=== PATIENT | male | born 1945 | race Caucasian/White ===

== ENCOUNTER 2016-06-23 11:27 | Inpatient (IN) | payer OTHER ==
[~2016-06-23] VITALS: Ht 177.8 cm; Wt 80.4 kg
[~2016-06-23 11:27] MED LIST: CMD25 PO; DOCU-94 PO; GLCSC500400 PO; OXYC-57 PO; SENN1TAB77 PO; WARF2.5T8 PO
--- NOTE | 2016-06-23 11:56 | EMERGENCY ROOM VISIT NOTE ---
History Report prepared by Audra: Janneth Ashford Under the Supervision of: Dr. Elkin Hicks M.D. First contact with patient: 11:43 Chief Complaint: CALF PAIN Stated Complaint: PAIN/REDNESS AND SWELLING TO LEFT CALF History of Present Illness The patient is a 71 year old male who presents to the Emergency Room with complaints of persistent left calf pain that began 14 days ago. He currently rates his discomfort as an 8/10 in severity. The patient states that on 06/10 he started with left leg pain and left knee pain. He states that on 06/12 he developed severe pain and could not get out of bed. The patient states that he was evaluated in the emergency department for his pain and had his knee drained by Dr. Kapoor. He states that his knee discomfort and swelling has gone down, but notes that he is having increased calf discomfort and swelling. The patient states that he noticed erythema to the area develop yesterday. He denies any trauma to his area. The patient notes that he is on Coumadin for atrial fibrillation. Source of History: patient Onset: 14 days ago Position: other (left calf) Symptom Intensity: 8/10 Quality: other (swelling) Timing: other (persistent) Note: Associated Symptoms: erythema to left calf, left knee swelling Review of Systems No change from visit on June 12. Past Medical & Surgical Medical Problems: (1) Diabetes (2) Heart disease (3) Hypertension (4) Pacemaker (5) Pneumonia Surgical Problems: (1) S/P aortic valve replacement (2) Status post right knee replacement Family History Diabetes mellitus FHx: heart disease Hypertension Social History Smoking Status: Current Some Day Smoker Alcohol Use: occasionally Marital Status: Occupation Status: retired Current/Historical Medications Scheduled Aspirin (Aspirin EC Low Dose), 81 MG PO DAILY Atenolol (Tenormin), 50 MG PO DAILY Atorvastatin (Lipitor), 80 MG PO DAILY Bioflavonoid Products (Dionna-C), 1,000 MG PO DAILY Glimepiride (Glimepiride), 1 TAB PO DAILY Glucosamine-Chondroitin (Glucosamine/Chondroitin), 1 TAB PO DAILY Lisinopril (Zestril), 5 MG PO DAILY Metformin Hcl (Glucophage), 1,000 MG PO BID Multivitamin (Multivitamin), 1 TAB DAILY Warfarin Sod (Jantoven), 2.5 MG PO 4XWK Warfarin Sod (Coumadin), 1.25 MG PO 2XWK Scheduled PRN Epinephrine (Epipen), 0.3 MG IM UD PRN for Chest Pain Oxycodone/Acetaminophen 5MG/325MG (Percocet 5MG/325MG), 1-2 TAB PO Q4H PRN for Pain Allergies Coded Allergies: Adhesives (Verified Allergy, Unknown, blisters with surgical glue , 06/23/16 ) Cephalexin (Verified Allergy, Unknown, hives, 06/23/16) Honey Bee (Verified Allergy, Unknown, 06/23/16) Physical Exam Vital Signs Date Time Temp Pulse Resp B/P Pulse Ox O2 Delivery O2 Flow Rate FiO2 06/23/16 14:10 60 18 120/66 95 Room Air 06/23/16 11:29 36.3 80 18 125/68 96 Room Air Physical Exam GENERAL: Patient awake, alert, oriented x 3. Patient follows commands. Patient does not appear toxic. Patient is adequately hydrated and well- nourished. SKIN: No erythema, pallor, cyanosis or rash HEENT: Normal head, pupils equal, reactive to light and accommodation. Neck: Without adenopathy, no neck vein distention. LUNGS: Clear to auscultation. No wheezes, no rales, no rhonchi. HEART: No murmurs. No gallops. No rubs ABDOMEN: No masses, no rebound, no hepatomegaly or splenomegaly. EXTREMITIES: Ecchymosis on the medial aspect of the left knee. Babak swelling and erythema of the left calf. Circulation is intact. Pain with any movement of the left leg. Sensory function intact. NEUROLOGIC: Cranial nerves II-XII within normal limits. No gross motor sensory function deficits. Medical Decision & Procedures ER Provider Diagnostic Interpretation: US results are interpretations by the radiologist and per my review. LEFT LOWER EXTREMITY VENOUS DOPPLER HISTORY: Left calf pain and swelling. COMPARISON STUDY: None. FINDINGS: There is normal compressibility, flow, and augmentation within the left lower extremity deep venous system. At the popliteal fossa extending into the calf there is a 17 x 9 x 4 cm complex fluid collection. This is located deep to the subcutaneous fat and partially compresses the adjacent calf muscles. IMPRESSION: No DVT within the left lower extremity. At the left popliteal fossa extending into the calf there is a 17 x 9 x 4 cm complex fluid collection. This is located deep to the subcutaneous fat. This could represent a hematoma related to prior trauma or possibly an abscess in the appropriate clinical setting. Recommend follow-up to resolution. Electronically signed by: Corbin Awad M.D. 06/23/2016 1:29 PM Dictated Date/Time: 06/23/2016 1:27 PM Laboratory Results 06/23/16 12:05 Red Blood Count 4.37, Mean Corpuscular Volume 92.2, Mean Corpuscular Hemoglobin 32.3, Mean Corpuscular Hemoglobin Concent 35.0, Mean Platelet Volume 9.4, Neutrophils (%) (Auto) 72.6, Lymphocytes (%) (Auto) 15.9, Monocytes (%) (Auto) 10.2, Eosinophils (%) (Auto) 0.6, Basophils (%) (Auto) 0.2, Neutrophils # (Auto ) 9.36, Lymphocytes # (Auto) 2.05, Monocytes # (Auto) 1.32, Eosinophils # (Auto ) 0.08, Basophils # (Auto) 0.02 06/23/16 12:05 Test 06/23/16 12:05 06/23/16 14:02 White Blood Count 12.90 K/uL (4.8-10.8) Red Blood Count 4.37 M/uL (4.7-6.1) Hemoglobin 14.1 g/dL (14.0-18.0) Hematocrit 40.3 % (42-52) Mean Corpuscular Volume 92.2 fL (80-100) Mean Corpuscular Hemoglobin 32.3 pg (25-34) Mean Corpuscular Hemoglobin Concent 35.0 g/dl (32-36) Platelet Count 347 K/uL (130-400) Mean Platelet Volume 9.4 fL (7.4-10.4) Neutrophils (%) (Auto) 72.6 % Lymphocytes (%) (Auto) 15.9 % Monocytes (%) (Auto) 10.2 % Eosinophils (%) (Auto) 0.6 % Basophils (%) (Auto) 0.2 % Neutrophils # (Auto) 9.36 K/uL (1.4-6.5) Lymphocytes # (Auto) 2.05 K/uL (1.2-3.4) Monocytes # (Auto) 1.32 K/uL (0.11-0.59) Eosinophils # (Auto) 0.08 K/uL (0-0.5) Basophils # (Auto) 0.02 K/uL (0-0.2) RDW Standard Deviation 50.6 fL (36.4-46.3) RDW Coefficient of Variation 15.0 % (11.5-14.5) Immature Granulocyte % (Auto) 0.5 % Immature Granulocyte # (Auto) 0.07 K/uL (0.00-0.02) Prothrombin Time 14.9 SECONDS (9.0-12.0) Prothromb Time International Ratio 1.4 (0.9-1.1) Activated Partial Thromboplast Time 35.0 SECONDS (21.0-31.0) Partial Thromboplastin Ratio 1.3 Anion Gap 11.0 mmol/L (3-11) Est Creatinine Clear Calc Drug Dose 80.9 ml/min Estimated GFR () 101.1 Estimated GFR (Non- 87.2 BUN/Creatinine Ratio 20.4 (10-20) Calcium Level 9.0 mg/dl (8.5-10.1) Bedside Lactic Acid Venous 0.93 mmol/L (0.90-1.70) Laboratory results as stated above per my review. Medications Administered Medications (Trade) Dose Ordered Sig/Harpal Route Start Time Stop Time Status Last Admin Dose Admin Oxycodone/ Acetaminophen (Percocet 5-325MG Tab) 1 tab NOW ONCE PO 06/23/16 12:00 06/23/16 12:01 DC 06/23/16 11:56 1 TAB Oxycodone/ Acetaminophen (Percocet 5-325MG Tab) 1 tab NOW ONCE PO 06/23/16 14:15 06/23/16 14:16 DC 06/23/16 14:13 1 TAB ECG Indication: other (history of atrial fibrillation) Rate (beats per minute): 60 Rhythm: other (duel pacemaker) Findings: no acute ischemic change, no ectopy Comparison ECG Date: 06/12/16 ED Course 1143: Past medical records reviewed. The patient was evaluated in room B7. A complete history and physical examination was performed. 1200: Ordered Oxycodone/Acetaminophen 1 tab PO. 1409: I reevaluated the patient and he is resting. I discussed his exam findings with him and I discussed the treatment plan. He verbalized complete understanding and agreement. The patient will be evaluated for further treatment. 1415: Ordered Oxycodone/Acetaminophen 1 tab PO. 1423: I discussed the patients case with PAVAN Stokes. She is going to evaluate the patient for further treatment. Medical Decision Nurses notes reviewed. Medical history sheet reviewed. Differential diagnosis includes but is not limited to: DVT, cellulitis, atrial fibrillation. The patient is here with left knee and calf pain. He states that his knee is now better since having it drained by the orthopedist. The calf has gotten much worse and now is red, swollen and very tender. The patient is concerned that he has a DVT. Ultrasound was obtained revealing a large collection of fluid but no DVT. The patient's white count is elevated. The patient and the patient's lactic acid is not elevated. The patient has significant cellulitis and possibly an abscess. Blood cultures were obtained. The patient will be started on antibiotics. The patient will require orthopedic evaluation. I discussed care with the hospitalist. Consults Time Called: 1416 Consulting Physician: PAVAN Stokes Returned Call: 1428 I discussed the patients case with PAVAN Stokes. She is going to evaluate the patient for further treatment. Impression Primary Impression: Cellulitis Scribe Attestation The scribe's documentation has been prepared under my direction and personally reviewed by me in its entirety. I confirm that the note above accurately reflects all work, treatment, procedures, and medical decision making performed by me. Departure Information Dispostion Being Evaluated By Hospitalist Referrals Francoise Kang M.D. (PCP)
[2016-06-23] MEDS ORDERED: OXYCODONE/ACETAMINOPHEN 5-325 TAB PO ONE ×2 (12:00→14:15)
[2016-06-23 12:17] LABS: BASO % 0.2 %; BASO ABS # 0.02 K/uL (0-0.2); COMPLETE YES; EOS % 0.6 %; HEMATOCRIT 40.3 % (42-52); IG% 0.5 %; LYMPH % 15.9 %; LYMPH ABS # 2.05 K/uL (1.2-3.4); MEAN CELL VOLUME 92.2 fL (80-100); MEAN CORPUSCULAR HEMOGLOBIN 32.3 pg (25-34); MEAN PLATELET VOLUME 9.4 fL (7.4-10.4); MONO % 10.2 %; NEUT % 72.6 %; PLATELET COUNT 347 K/uL (130-400); RED BLOOD COUNT 4.37 M/uL (4.7-6.1)
[2016-06-23 12:33] LABS: INR 1.4 (0.9-1.1); PARTIAL THROMBOPLASTIN RATIO 1.3; PROTHROMBIN TIME (PATIENT) 14.9 SECONDS (9.0-12.0)
[2016-06-23 12:45] LABS: BUN/CREATININE RATIO 20.4 (10-20); CREATININE 0.89 mg/dl (0.60-1.40); POTASSIUM 4.2 mmol/L (3.5-5.1)
--- NOTE | 2016-06-23 13:31 | DIAGNOSTIC IMAGING REPORT ---
LEFT LOWER EXTREMITY VENOUS DOPPLER HISTORY: Left calf pain and swelling. COMPARISON STUDY: None. FINDINGS: There is normal compressibility, flow, and augmentation within the left lower extremity deep venous system. At the popliteal fossa extending into the calf there is a 17 x 9 x 4 cm complex fluid collection. This is located deep to the subcutaneous fat and partially compresses the adjacent calf muscles. IMPRESSION: No DVT within the left lower extremity. At the left popliteal fossa extending into the calf there is a 17 x 9 x 4 cm complex fluid collection. This is located deep to the subcutaneous fat. This could represent a hematoma related to prior trauma or possibly an abscess in the appropriate clinical setting. Recommend follow-up to resolution. Electronically signed by: Corbin Awad M.D. 06/23/2016 1:29 PM Dictated Date/Time: 06/23/2016 1:27 PM
[2016-06-23] MEDS ORDERED: ONDANSETRON INJ 2 MG/ML 2 ML VIAL IV PRN (16:00)
[2016-06-23] MEDS ORDERED: ACETAMINOPHEN 325 MG TAB PO PRN (16:00)
[2016-06-23] MEDS ORDERED: VANCOMYCIN CONSULT ACTIVE PRN (16:05)
[2016-06-23] MEDS ORDERED: GLUCOSE 40% GEL 15 GM TUBE PO PRN (16:15)
[2016-06-23] MEDS ORDERED: DEXTROSE 50% 50 ML SYR IV PRN (16:15)
[2016-06-23] MEDS ORDERED: GLUCAGON FOR INJ 1 MG VIAL SQ PRN (16:15)
[2016-06-23] MEDS ORDERED: GLUCOSE 10 TABS/TUBE PO PRN (16:15)
[2016-06-23] MEDS ORDERED: VANCOMYCIN INJ 2,000 MG in SODIUM CHLORIDE 0.9% 500ML 500 ML IV ONE (16:30)
--- NOTE | 2016-06-23 16:41 | History and Physical ---
History & Physical Date & Time of Service: Jun 23, 2016 at 16:16 Chief Complaint: Pain/Redness And Swelling To Left Calf Primary Care Physician: Francoise Kang M.D. History of Present Illness Source: patient This is a 71 y/o male with PMHx of DM 2, Complete heart block s/p pacer, s/p AVR on Coumadin, PAF, HTN, Dyslipidemia and ither problems as outlined below who presents to the ED c/o L calf pain x 2 weeks . Pt reports that 2 weeks ago he developed L knee pain that radiated into the calf and ankle. He was seen in the ED for for his sxs and LLE US revealed a small fluid collection behind his knee. He was seen by ortho, Dr. Kapoor, who attempted to drain the knee and gave a steroid injection. Pt reports that the steroid injection helped with the knee pain however the calf pain has gotten progressively worse. He describes the calf pain as 10/10 stabbing pain. His sxs are aggravated with standing or bearing weight therefore he has been using a walker for the past week. His calf is significantly swollen and starting yesterday he noticed erythema extending from the knee to the ankle with assoc warmth to touch. Pt has a history of PAf on Coumadin. He has no history of DVT. Pt denies fever/chills, diaphoresis, chest pain, palpitations, SOB, wheezing, abd pain, N/V, bowel or bladder issues , lightheadedness/dizziness. In the ED, vitals are stable. Pt is afebrile with leukocytosis >12k. INR 1.4. LLE US + large fluid collection. Pt will be admitted for further evaluation and treatment. Past Medical/Surgical History Medical Problems: (1) Diabetes mellitus, type II Status: Chronic (2) Dyslipidemia Status: Chronic (3) Heart disease Status: Chronic (4) Hypertension Status: Chronic (5) Pacemaker Permanent Comment: for complete heart block Status: Chronic (6) Paroxysmal atrial fibrillation Status: Resolved (7) Pneumonia Status: Resolved Surgical Problems: (1) H/O vasectomy Status: Resolved (2) History of carpal tunnel surgery Status: Resolved (3) S/P aortic valve replacement Status: Resolved (4) S/P AVR Status: Resolved (5) Status post right knee replacement Status: Resolved Family History Diabetes mellitus FHx: heart disease Hypertension Social History Smoking Status: Current Every Day Smoker (1 ppd x 20 years; 5 cigs per day x 10 years) Alcohol Use: occasionally Drug Use: none Marital Status: Housing status: lives alone Occupational Status: retired Immunizations History of Influenza Vaccine: Yes History of Tetanus Vaccine?: Yes History of Pneumococcal: No History of Hepatitis B Vaccine: No Multi-Drug Resistant Organisms History of MDRO: No Allergies Coded Allergies: Adhesives (Verified Allergy, Unknown, blisters with surgical glue , 06/23/16 ) Cephalexin (Verified Allergy, Unknown, hives, 06/23/16) Honey Bee (Verified Allergy, Unknown, 06/23/16) Home Medications Scheduled Aspirin (Aspirin EC Low Dose), 81 MG PO DAILY Atenolol (Tenormin), 50 MG PO DAILY Atorvastatin (Lipitor), 80 MG PO DAILY Bioflavonoid Products (Dionna-C), 1,000 MG PO DAILY Glimepiride (Glimepiride), 1 TAB PO DAILY Glucosamine-Chondroitin (Glucosamine/Chondroitin), 1 TAB PO DAILY Lisinopril (Zestril), 5 MG PO DAILY Metformin Hcl (Glucophage), 1,000 MG PO BID Multivitamin (Multivitamin), 1 TAB DAILY Warfarin Sodium (Coumadin), 2.5 MG PO 3XWK Warfarin Sodium (Coumadin), 1.25 MG PO 4XWK Scheduled PRN Epinephrine (Epipen), 0.3 MG IM UD PRN for Chest Pain Oxycodone/Acetaminophen 5MG/325MG (Percocet 5MG/325MG), 1-2 TAB PO Q4H PRN for Pain Review of Systems Constitutional: No chills, No fatigue, No fever, No sweats, No weakness Eyes: No worsening of vision ENT: No hearing loss Respiratory: No cough, No shortness of breath Cardiovascular: No chest pain, No palpitations Abdomen: No constipation, No diarrhea, No nausea, No pain, No vomiting Musculoskeletal: + calf pain, + swelling Genitourinary - Male: No dysuria Neurologic: No weakness Psychiatric: No depression symptoms Endocrine: No fatigue Hematologic / Lymphatic: + abnormal bleeding/bruising (eccymosis LLE) Integumentary: + new/changing skin lesions (see HPI) Physical Exam Vital Signs Date Time Temp Pulse Resp B/P Pulse Ox O2 Delivery O2 Flow Rate FiO2 1/8/17 14:10 60 18 120/66 95 Room Air 06/23/16 11:29 36.3 80 18 125/68 96 Room Air General Appearance: WD/WN, no apparent distress, + pertinent finding (Pt si laying in bed with significant other at bedside ) Head: normocephalic, atraumatic Eyes: normal inspection ENT: hearing grossly normal Neck: supple Respiratory/Chest: chest non-tender, lungs clear, normal breath sounds, no respiratory distress Cardiovascular: regular rate, rhythm, no murmur Abdomen/GI: normal bowel sounds, non tender, soft Back: normal inspection Extremities/Musculoskelatal: + pertinent finding (LLE with erythema and edema extending from knee to ankle with eccymosis noted to medial aspect of knee and calf; diffusely tender to touch; no wounds or skin openings noted) Neurologic/Psych: alert, normal mood/affect, oriented x 3 Skin: + pertinent finding (see above) Diagnostics Laboratory Results Results Past 24 Hours Test 06/23/16 12:05 06/23/16 14:02 Range/Units White Blood Count 12.90 4.8-10.8 K/uL Red Blood Count 4.37 4.7-6.1 M/uL Hemoglobin 14.1 14.0-18.0 g/dL Hematocrit 40.3 42-52 % Mean Corpuscular Volume 92.2 80-100 fL Mean Corpuscular Hemoglobin 32.3 25-34 pg Mean Corpuscular Hemoglobin Concent 35.0 32-36 g/dl Platelet Count 347 130-400 K/uL Mean Platelet Volume 9.4 7.4-10.4 fL Neutrophils (%) (Auto) 72.6 % Lymphocytes (%) (Auto) 15.9 % Monocytes (%) (Auto) 10.2 % Eosinophils (%) (Auto) 0.6 % Basophils (%) (Auto) 0.2 % Neutrophils # (Auto) 9.36 1.4-6.5 K/uL Lymphocytes # (Auto) 2.05 1.2-3.4 K/uL Monocytes # (Auto) 1.32 0.11-0.59 K/uL Eosinophils # (Auto) 0.08 0-0.5 K/uL Basophils # (Auto) 0.02 0-0.2 K/uL RDW Standard Deviation 50.6 36.4-46.3 fL RDW Coefficient of Variation 15.0 11.5-14.5 % Immature Granulocyte % (Auto) 0.5 % Immature Granulocyte # (Auto) 0.07 0.00-0.02 K/uL Prothrombin Time 14.9 9.0-12.0 SECONDS Prothromb Time International Ratio 1.4 0.9-1.1 Activated Partial Thromboplast Time 35.0 21.0-31.0 SECONDS Partial Thromboplastin Ratio 1.3 Sodium Level 140 136-145 mmol/L Potassium Level 4.2 3.5-5.1 mmol/L Chloride Level 104 98-107 mmol/L Carbon Dioxide Level 25 21-32 mmol/L Anion Gap 11.0 3-11 mmol/L Blood Urea Nitrogen 18 7-18 mg/dl Creatinine 0.89 0.60-1.40 mg/dl Est Creatinine Clear Calc Drug Dose 80.9 ml/min Estimated GFR () 101.1 Estimated GFR (Non- 87.2 BUN/Creatinine Ratio 20.4 10-20 Random Glucose 154 70-99 mg/dl Calcium Level 9.0 8.5-10.1 mg/dl Bedside Lactic Acid Venous 0.93 0.90-1.70 mmol/L Microbiology Results 06/23/16 Blood Culture, Received Pending 06/23/16 Blood Culture, Received Pending Diagnostic Radiology LLE US IMPRESSION: No DVT within the left lower extremity. At the left popliteal fossa extending into the calf there is a 17 x 9 x 4 cm complex fluid collection. This is located deep to the subcutaneous fat. This could represent a hematoma related to prior trauma or possibly an abscess in the appropriate clinical setting. Recommend follow-up to resolution EKG EKG: dual-paced rhythm at 60 bpm with no acute ischemic changes; no change when compared to EKG from 06/12/16 Impression Assessment and Plan LLE PAIN/SWELLING; POSSIBLE ABSCESS VS. HEMATOMA pt presents with worsening LLE pain, swelling and erythema -admit to med/surg -LLE US Impression: No DVT within the left lower extremity. At the left popliteal fossa extending into the calf there is a 17 x 9 x 4 cm complex fluid collection. This is located deep to the subcutaneous fat. This could represent a hematoma related to prior trauma or possibly an abscess in the appropriate clinical setting. Recommend follow-up to resolution -hold Coumadin for possible hematoma/possible OR -consult ortho surgery, Dr. Vega -monitor LLE CELLULITIS -afebrile with leukocytosis >12k -start IV Vanco -monitor SUBTHERAPEUTIC INR -on Coumadin for Afib and AVR -INR 1.4 -hold Coumadin for now due to possible hematoma -monitor INR daily DM 2 -A1C 7.1; repeat in AM -hold metformin and glimepiride -start ISS -monitor BSG AC HS COMPLETE HEART BLOCK s/p pacemaker placed 2003 and replaced 2013 H/O AVR -hold Coumadin (see above) PAF -EKG: paced rhythm -hold Coumadin for now (see above) -cont BB -monitor HTN -BP stable -cont lisinopril and atenolol -monitor DYSLIPIDEMIA -cont statin DVT PROPHYLAXIS -subq heparin CODE STATUS -FULL CODE status DISPO -Pt seen in collaboration with Dr. Lam. Please see his addendum for further details. Thanks! Attending Note: Patient is a 71 yr old male with PMH of DM II, Complete heart block s/p pacer, s /p AVR on Coumadin, PAF, HTN, HLP, presents with Left LE pain predominantly calf associated with swelling, redness since 2 weeks duration Venous duplex is negative for DVT but showed fluid collection. Physical Exam: Vital signs as noted above Moderately built and nourished, no distress NC/AT, EOMI, PERRLA CVS: S1, S2, no murmur Lungs; CTA, no accessory muscle use Abd: soft, non tender, BS present Neuro; no focal deficits Ext: Ecchymosis on the medial aspect of the left knee, swelling, erythema, tender left calf. Assessment and plan: Left LE cellulitis with Abscess/hematoma Start on IV Vancomycin Blood cultures Venous Duplex No DVT Ortho consult, May need drainage Pain control, PT/OT Agree with assessment and plan as above. VTE Prophylaxis VTE Risk Assessment Done? Y/N: Yes Risk Level: High
[2016-06-23 17:00] VITALS: BP 122/77; PULSE 62; TEMP 36.5; O2SAT 96; Ht 177.8 cm; Wt 80.4 kg
[2016-06-23] MEDS ORDERED: INSULIN ASPART 100 UNITS/ML 3 ML PEN SC SCH (21:00)
[2016-06-23] MEDS ORDERED: HEPARIN SOD 5000 UNIT/0.5 ML CARP SQ SCH (22:00)
--- NOTE | 2016-06-23 22:04 | Pharmacy Progress Note ---
Pharmacy Antibiotic Consult Date of Service: Jun 23, 2016. Pharmacy Dosing Scope Pharmacy is consulted to initiate IV Vancomycin dosing therapy, order appropriate labs and adjust drug dose/frequency. Subjective The patient is a 71 year old male admitted on Jun 23, 2016 at 15:40. Objective Height (Feet): 5 Height (Inches): 10.00 Weight (Kilograms): 80.400 Lab Results (24hrs): Laboratory Tests Test 06/23/16 12:05 BUN/Creatinine Ratio 20.4 Blood Urea Nitrogen 18 mg/dl Creatinine 0.89 mg/dl White Blood Count 12.90 K/uL Red Blood Count 4.37 M/uL Hemoglobin 14.1 g/dL Hematocrit 40.3 % Mean Corpuscular Volume 92.2 fL Mean Corpuscular Hemoglobin 32.3 pg Mean Corpuscular Hemoglobin Concent 35.0 g/dl Platelet Count 347 K/uL Mean Platelet Volume 9.4 fL Neutrophils (%) (Auto) 72.6 % Lymphocytes (%) (Auto) 15.9 % Monocytes (%) (Auto) 10.2 % Eosinophils (%) (Auto) 0.6 % Basophils (%) (Auto) 0.2 % Neutrophils # (Auto) 9.36 K/uL Lymphocytes # (Auto) 2.05 K/uL Monocytes # (Auto) 1.32 K/uL Eosinophils # (Auto) 0.08 K/uL Basophils # (Auto) 0.02 K/uL Micro Results: Item Value Date Time Blood Culture Received 06/23/16 1354 Blood Pending Blood Culture Received 06/23/16 1402 Blood Pending Recent Pertinent Medications Item Value Date Time Vancomycin HCl 540 ml @ 200 mls/hr 06/23/16 1630 2000 mg/Sodium NOW ONCE/IV 06/23/16 1623 Chloride Vancomycin HCl 274 ml @ 125 mls/hr 06/24/16 0400 1200 mg/Sodium Q12H/IV Chloride Assessment & Plan Vancomycin * 71 yo male admitted w/ LLE cellulitis * Loading dose: Vancomycin 2gm IV x 1 dose * Maintenance dose: Vancomycin 1200mg IV q12h * P'kinetic estimates: k ~ 0.0716hr-1 & t1/2 ~ 9.7hr * Goal trough level: ~15mcg/mL * Trough level ordered for: 06/25/15 0400 Pharmacy will continue to follow and will adjust dose/frequency as necessary. Thank you
[2016-06-23] MEDS ORDERED: NURSING VERBAL MED ORDER ONE (22:30)
[2016-06-23 23:25] VITALS: BP 119/72; PULSE 62; TEMP 36.9; O2SAT 97
[2016-06-24] MEDS: VANCOMYCIN INJ 1,200 MG in SODIUM CHLORIDE 0.9% 250ML 250 ML IV SCH ×2 (03:59→15:31)
[2016-06-24 05:38] LABS: INR 1.4 (0.9-1.1); PROTHROMBIN TIME (PATIENT) 15.4 SECONDS (9.0-12.0)
[2016-06-24 05:56] LABS: CREATININE 0.66 mg/dl (0.60-1.40)
[2016-06-24 06:30] LABS: ESTIMATED AVERAGE GLUCOSE 143 mg/dl; HA1C FLAG Normal (Normal)
[2016-06-24] MEDS ORDERED: NURSING VERBAL MED ORDER ONE ×2 (07:00→13:15)
[2016-06-24] MEDS: INSULIN ASPART 100 UNITS/ML 3 ML PEN SC SCH ×4 (07:15→21:00)
[2016-06-24] MEDS: LISINOPRIL 5 MG TAB PO SCH (07:17)
[2016-06-24] MEDS: ATORVASTATIN 40 MG TAB PO SCH (07:17)
[2016-06-24] MEDS: MULTIVITAMIN TAB PO SCH (07:17)
[2016-06-24 07:20] VITALS: BP 132/70; PULSE 60
[2016-06-24 07:30] VITALS: BP 134/76; PULSE 72; TEMP 37.1; O2SAT 95
[2016-06-24 07:39] VITALS: O2SAT 95
[2016-06-24] MEDS ORDERED: BIOFLAVONOID PRODUCTS PO SCH (09:00)
[2016-06-24] MEDS ORDERED: GLUCOSAMINE CHONDROITIN PO SCH (09:00)
[2016-06-24 15:17] VITALS: BP 117/76; PULSE 66; TEMP 36.5; O2SAT 97
--- NOTE | 2016-06-24 15:25 | HISTORY & PHYSICAL EXAMINATION ---
DATE OF ADMISSION: 06/23/2016 CHIEF COMPLAINT: Left calf pain. HISTORY OF PRESENT ILLNESS: Mr. Dejesus is a delightful gentleman. He is 71 years of age. He has had ongoing difficulties with his left knee, left lower extremity for 15 days in duration. Pain started around , may be a day before. He came to the Emergency Room on the 12 of June seen and evaluated. He also had a knee injection performed by Dr. Nba Kapoor and helped him immensely as far as his knee is concern. Then over the course of weeks and days he has had progressive lower extremity difficulty mainly in the calf, exquisite knife and stabbing type pain when he bears weight on the lower extremity. It can be as high as a 10/10. He is comfortable at rest. His pain is aggravated by standing and walking. PAST MEDICAL AND SURGICAL HISTORY: Diabetes, hyperlipidemia, heart disease, hypertension, pacemaker insertion, AFib, pneumonia, vasectomy. He also recently had been placed on Coumadin. SOCIAL HISTORY: He is a smoker, mild alcohol, no drug use. He lives alone, retired. MEDICATIONS: Listed including aspirin, Tenormin, Lipitor, glimepiride, Zestril, Glucophage, multi vitamin, and Coumadin. REVIEW OF SYSTEMS: He has no constitutional issues of fevers, sweats, chills. No bowel or bladder issues. As far as that is concerned, he is comfortable. Denies any chest pain and palpitations. Denies asthma, wheezing. Denies nausea, vomiting. Denies urgency, frequency. He really has a singular issue with left lower extremity and calf tenderness. OBJECTIVE: Vital signs stable. As far as his left lower extremity is concerned, there is some discoloration, pain in the left calf region. It does appear that it has gone inferior, drifted with the gravity down the part of his calf region. It is not exquisitely tender. There is not a Homans sign. There is no neurological deficit. There is no breakage of skin. He has weakness of push off strength. Slight weakness of dorsiflexion. He has great range of motion of the knee and ankle. There is discoloration looks like it is in the process of healing. LABORATORY DATA: White count slightly elevated. Hematocrit 40.3. Prothrombin time of 14.9. IMAGING DATA: X-rays demonstrate some degenerative changes about the left knee and what appears to be chondrocalcinosis. CLINICAL SUMMARY: Includes that of a delightful young gentleman, 71 years of age, more than likely he had either a Cardoza's cyst posterior aspect of the knee that ruptured now is dissecting down the posterior calf musculature. He also might have had a tear of the gastrocsoleus complex, a popliteus tendon, although he has had no trauma. From also is made worse the fact that he has been on Coumadin, so he is probably a little more bleeding into the calf region than per normal. DISPOSITION: Surgery is contraindicated. I would keep him this, walk with supported ice, rest, elevation, medication and this should eventually resolve over time. Again, surgery contraindicated. As far as starting the Coumadin that is debatable. I think we should start his Coumadin treatments maybe in 2-4 days from now might be appropriate as well. I will follow again in the morning which would be the 25 of June. DENTON
[2016-06-24] MEDS: OXYCODONE/ACETAMINOPHEN 5-325 TAB PO PRN ×2 (15:30→19:52)
--- NOTE | 2016-06-24 18:44 | Progress Note ---
Internal Med Progress Note Date of Service: Jun 24, 2016. Provider Documentation: SUBJECTIVE: Patient is seen and examined at bedside. States having persistent left calf pain. Denies any new symptoms. Erythema of left LE improved from yesterday. OBJECTIVE: Vital Signs-as noted below General Appearance: WD/WN, no apparent distress Head: normocephalic, atraumatic Eyes: normal inspection ENT: hearing grossly normal Neck: supple, No JVD Respiratory/Chest: chest non-tender, lungs clear, normal breath sounds, no respiratory distress Cardiovascular: regular rate, rhythm, no murmur Abdomen/GI: normal bowel sounds, non tender, soft Back: normal inspection Extremities/Musculoskelatal: LLE erymatous, left calf swelling, tender Neurologic/Psych: alert, normal mood/affect, oriented x 3, No focal deficits Skin: + pertinent finding (see above) Lab data as noted below. ASSESSMENT & PLAN: Patient is a 71 yr old male with PMH of DM II, Complete heart block s/p pacer, s /p AVR on Coumadin, PAF, HTN, HLP, presents with Left LE pain predominantly calf associated with swelling, redness since 2 weeks duration. Venous duplex is negative for DVT but showed fluid collection Left LE cellulitis with Abscess/hematoma Likely Backer's cyst rupture/tendon rupture Continue IV Vancomycin Blood cultures-pending Venous Duplex No DVT Appreciate Orthopedic input Hold Coumadin for now Follow up CT LLE Pain control, PT/OT P.Afib Subtherapeutic INR: INR: 1.4 today Coumadin on hold given possibility of hematoma in LLE DM II HbA1C: 6.6 Hold home meds ISS, Accu checks Complete heart block S/P Pacemaker placed 2003 and replaced 2013 Hypertension: Stable continue lisinopril, BB Dyslipidemia: continue statin DVT Px: SCDs Code Status Full code Vital Signs: Date Time Temp Pulse Resp B/P Pulse Ox O2 Delivery O2 Flow Rate FiO2 06/24/16 15:17 36.5 66 18 117/76 97 Room Air 06/24/16 07:41 Room Air 06/24/16 07:39 95 Room Air 06/24/16 07:30 37.1 72 18 134/76 95 Room Air 06/24/16 07:20 60 132/70 06/24/16 00:15 Room Air 06/23/16 23:25 36.9 62 16 119/72 97 Room Air 06/23/16 19:45 Room Air Lab Results: Results Past 24 Hours Test 06/23/16 20:42 06/24/16 05:07 06/24/16 12:23 Range/Units Bedside Glucose 112 103 70-99 mg/dl Prothrombin Time 15.4 9.0-12.0 SECONDS Prothromb Time International Ratio 1.4 0.9-1.1 Creatinine 0.66 0.60-1.40 mg/dl Est Creatinine Clear Calc Drug Dose 109.1 ml/min Estimated GFR () 114.3 Estimated GFR (Non- 98.6 Estimated Average Glucose 143 mg/dl Hemoglobin A1c 6.6 4.5-5.6 %
--- NOTE | 2016-06-24 19:02 | DIAGNOSTIC IMAGING REPORT ---
LEFT LOWER LEG CT CT DOSE: 285.16 mGy.cm HISTORY: HEMATOMA VS ABSCESS LEFT KNEE/CALF. COORDINATE WITH ULTRA SOUND TECHNIQUE: Multiaxial CT images of the left lower leg were performed and reformatted in the sagittal and coronal plane without the use of contrast. COMPARISON: Left leg venous Doppler 06/23/2016. FINDINGS: Within the medial gastrocnemius muscle there is a 16 x 6 x 5 cm predominantly hyperdense area. This results in expansion of the muscle. This most likely represents an intramuscular hematoma. There is subcutaneous edema seen within the distal lower leg. There is no gas to suggest an abscess. No fracture or dislocation within the tibia or fibula. Mild to moderate osteoarthritis within the knee. There is no knee effusion. IMPRESSION: A 16 x 6 x 5 cm predominantly hyperdense area within the medial gastrocnemius muscle. This is consistent with an intramuscular hematoma. An underlying infectious process is considered less likely but cannot be excluded by CT. This requires clinical evaluation. One month ultrasound follow-up can be performed to ensure complete resolution. Electronically signed by: Corbin Awad M.D. 06/24/2016 7:00 PM Dictated Date/Time: 06/24/2016 6:55 PM
[2016-06-24 23:19] VITALS: BP 112/65; PULSE 60; TEMP 36.4; O2SAT 97
[2016-06-25] VITALS (8 sets, daily range): BP systolic 112–134; BP diastolic 65–84; PULSE 58–74; TEMP 36.3–36.7; O2SAT 94–97
[2016-06-25] MEDS ORDERED: VANCOMYCIN TROUGH SCH (03:30)
[2016-06-25] MEDS ORDERED: NURSING VERBAL MED ORDER ONE ×2 (03:45→19:00)
[2016-06-25] MEDS: VANCOMYCIN INJ 1,200 MG in SODIUM CHLORIDE 0.9% 250ML 250 ML IV SCH ×2 (04:03→15:34)
[2016-06-25] MEDS: INSULIN ASPART 100 UNITS/ML 3 ML PEN SC SCH ×4 (06:00→21:00)
[2016-06-25 06:22] LABS: BASO % 0.2 %; BASO ABS # 0.02 K/uL (0-0.2); COMPLETE YES; EOS % 2.8 %; HEMATOCRIT 35.8 % (42-52); IG% 0.6 %; LYMPH % 26.2 %; LYMPH ABS # 2.19 K/uL (1.2-3.4); MEAN CORPUSCULAR HEMOGLOBIN 31.9 pg (25-34); MEAN CORPUSCULAR HGB CONC 34.6 g/dl (32-36); MEAN PLATELET VOLUME 9.5 fL (7.4-10.4); MONO % 12.1 %; NEUT % 58.1 %; PLATELET COUNT 291 K/uL (130-400); RED BLOOD COUNT 3.89 M/uL (4.7-6.1); WHITE BLOOD COUNT 8.36 K/uL (4.8-10.8)
[2016-06-25 06:57] LABS: BUN/CREATININE RATIO 22.7 (10-20); CALCIUM 8.6 mg/dl (8.5-10.1); CREATININE 0.62 mg/dl (0.60-1.40); POTASSIUM 3.8 mmol/L (3.5-5.1)
[2016-06-25 07:46] LABS: INR 1.5 (0.9-1.1); PROTHROMBIN TIME (PATIENT) 15.8 SECONDS (9.0-12.0)
[2016-06-25] MEDS: ATORVASTATIN 40 MG TAB PO SCH (08:42)
[2016-06-25] MEDS: MULTIVITAMIN TAB PO SCH (08:42)
[2016-06-25] MEDS: LISINOPRIL 5 MG TAB PO SCH (08:43)
--- NOTE | 2016-06-25 09:41 | ORTHOPEDICS PROGRESS NOTE ---
DATE: 06/25/2016 DATE: 06/25/2016. SUBJECTIVE: A 71-year-old gentleman admitted with left calf and leg pain yesterday. The patient is on Coumadin. There has been no trauma, but it started shortly after Doc and has just been progressive. He was admitted for pain control. Ultrasound and CT scan revealed a fairly large hematoma and question of an abscess. His white count on admission was elevated. He continues to have pain. It is somewhat improved but significant calf pain. Denies any fevers. OBJECTIVE: VITAL SIGNS: Temperature 36.4. Vital signs stable. PHYSICAL EXAMINATION: GENERAL: Reveals a pleasant, middle-aged male. He is lying in bed, looks reasonably comfortable. EXTREMITIES: Examination of the left leg reveals no significant knee effusion. He can flex and extend his knee to about 90 degrees. He can dorsiflex and plantarflex his foot, but he has pain. He has got discomfort over the posteromedial aspect of his calf with a fairly significant tenseness and swelling in that area. A little bit of erythema. It is tender to palpate. He can flex and extend his foot appropriately. There are not signs of compartment issues. LABORATORY DATA: His white cell count is now 8.36. Hemoglobin 12.4, hematocrit 35.8. Sed rate is 47 and C-reactive protein is 6.39. His INR is 1.5. CT SCAN: I reviewed his CT scan. He has got a fairly large fluid collection in his posterior medial gastroc. ASSESSMENT: A 71-year-old gentleman with a 2+-week history of left calf pain and discomfort just gradually persistent consistent with gastroc tear and fairly large hematoma. There was no real trauma, but I think he probably just has had some degree of fairly minor injury to his gastroc and developed a hematoma due to coumadin use. There may be some superimposed infection on this based on his lab results. PLAN: We discussed treatment options. I really think to get this gentleman better it is best to open this up and wash this out. I am a little concerned there may be some underlying infection, although it is not clearly obvious on clinical exam. His sed rate and C-reactive protein are slightly elevated. I think it is best to wash this out, will likely put a drain in it and close it. We will likely treat him with probably 2-3 days of IV antibiotics followed by 2 weeks of p.o. depending on what the cultures show. The risks and benefits of this procedure were explained to the patient and he understands and desires to proceed. We will take him to the operating room and do open I\T\D of this hematoma. We will send the fluid off for analysis and culture. We will make sure he is medically optimized. Will discuss anticoagulation afterwards as I think this is probably the source of this hematoma. It sounds like he likely needs this from the cardiac standpoint. DENTON
[2016-06-25] MEDS ORDERED: MoRPHine SULFATE 4 MG/ML 1 ML CARP\\VIAL IV PRN (10:45)
[2016-06-25] MEDS ORDERED: MoRPHine SULFATE 4 MG/ML 1 ML CARP\\VIAL ONE (10:51)
--- NOTE | 2016-06-25 11:09 | Pharmacy Progress Note ---
Pharmacy Antibiotic Prog Note Date of Service: Jun 25, 2016. Subjective: The patient is currently receiving VANC 1200mg (~15mg/kg) IV every 12 hours. * The patient is currently on day # 3 of VANC IV therapy for LLE cellulitis/ abscess Objective: Height (Feet): 5 Height (Inches): 10.00 Weight (Kilograms): 80.400 Levels: Item Value Date Time Vancomycin Level Trough 12.2 mcg/ml 06/25/16 0340 Lab Results (24hrs): Laboratory Tests Test 06/25/16 05:35 BUN/Creatinine Ratio 22.7 Blood Urea Nitrogen 14 mg/dl Creatinine 0.62 mg/dl White Blood Count 8.36 K/uL Red Blood Count 3.89 M/uL Hemoglobin 12.4 g/dL Hematocrit 35.8 % Mean Corpuscular Volume 92.0 fL Mean Corpuscular Hemoglobin 31.9 pg Mean Corpuscular Hemoglobin Concent 34.6 g/dl Platelet Count 291 K/uL Mean Platelet Volume 9.5 fL Neutrophils (%) (Auto) 58.1 % Lymphocytes (%) (Auto) 26.2 % Monocytes (%) (Auto) 12.1 % Eosinophils (%) (Auto) 2.8 % Basophils (%) (Auto) 0.2 % Neutrophils # (Auto) 4.86 K/uL Lymphocytes # (Auto) 2.19 K/uL Monocytes # (Auto) 1.01 K/uL Eosinophils # (Auto) 0.23 K/uL Basophils # (Auto) 0.02 K/uL Micro Results: Item Value Date Time Blood Culture - Preliminary Resulted 06/23/16 1402 Blood NO GROWTH TO DATE. Blood Culture - Preliminary Resulted 06/23/16 1354 Blood NO GROWTH TO DATE. Assessment & Plan: PLAN: going to OR for hematoma I&D. Will obtain cultures. Continue VANC-IV for now. VANC-IV: * This drug level is: NEAR-Therapeutic. Will continue current dose/interval and continue to monitor. Will recheck trough. * Continue VANC 1200mg (~15mg/kg) IV every 12 hours. * Goal trough level estimate: ~15 mcg/mL. * VANC trough level has been ordered for prior to dose 06/27/16 @ 0400: [] / [ ] / []. Pharmacy will continue to follow and will adjust dose/frequency as necessary. Thank you
[2016-06-25] MEDS ORDERED: MIDAZOLAM HCL 1 MG/ML 2ML VIAL ONE (15:13)
[2016-06-25] MEDS ORDERED: FENTANYL CITRATE INJ 50 MCG/1 ML 2 ML VIAL ONE (15:13)
[2016-06-25] MEDS ORDERED: ATROPINE SULFATE 0.1 MG/ML 5ML SYR IV PRN (16:00)
[2016-06-25] MEDS ORDERED: WARFARIN SOD 2 MG TAB PO ONE (16:00)
[2016-06-25] MEDS ORDERED: FENTANYL CITRATE INJ 50 MCG/1 ML 2 ML VIAL IV PRN (16:00)
[2016-06-25] MEDS ORDERED: ONDANSETRON INJ 2 MG/ML 2 ML VIAL IV PRN ×2 (16:00→17:00)
[2016-06-25] MEDS ORDERED: MoRPHine SULFATE 10 MG/ML CARP/VIAL IV PRN (16:00)
[2016-06-25] MEDS ORDERED: EpHEDrine SULFATE INJ 50 MG/ML AMP IV PRN (16:00)
[2016-06-25] MEDS ORDERED: LIDOCAINE HCL 2% 2 ML VIAL (20MG/ML) ONE (16:33)
[2016-06-25] MEDS ORDERED: ONDANSETRON INJ 2 MG/ML 2 ML VIAL ONE (16:33)
[2016-06-25] MEDS ORDERED: EpHEDrine SULFATE 50MG/5ML SYR ONE (16:33)
[2016-06-25] MEDS ORDERED: CLINDAMYCIN PHOS 150 MG/ML 2 ML VIAL ONE (16:33)
[2016-06-25] MEDS ORDERED: PROPOFOL IV EMULSION 10 MG/ML 20 ML VIAL IV ONE (16:33)
[2016-06-25] MEDS ORDERED: ALUMINUM/MAGNESIUM/SIMETH (MAALOX MAX) 30 ML UDC PO PRN (17:00)
[2016-06-25] MEDS ORDERED: SOD PHOSPHATE/SOD BIPHOSPHATE ENEMA 132 ML BTL PR PRN (17:00)
[2016-06-25] MEDS ORDERED: METOCLOPRAMIDE HCL INJ 5 MG/ML 2 ML VIAL IV PRN (17:00)
[2016-06-25] MEDS ORDERED: ZOLPIDEM TARTRATE 5 MG TAB PO PRN (17:00)
[2016-06-25] MEDS ORDERED: DiphenhydrAMINE HCL 50 MG/ML VIAL IV PRN (17:00)
[2016-06-25] MEDS ORDERED: BISACODYL 10 MG SUPP PR PRN (17:00)
--- NOTE | 2016-06-25 17:00 | [facility] Post Operative Brief Note ---
Immediate Operative Summary Operative Date Jun 25, 2016. Pre-Operative Diagnosis Left Calf Hematoma vs Abscess Post-Operative Diagnosis Left Calf Hematoma Procedure(s) Performed I & D + Evacuation of Calf Hematoma Surgeon MD Antwon [employer] Surgeon(s) SEBASTIAN Burch Estimated Blood Loss !0 cc Findings Large Calf Hematoma Fluids (cc crystalloids) 500 cc Specimens Tissue Culture + Fluid Culture Drains HMV left calf Anesthesia General Complication(s) None Disposition Recovery Room / PACU
[2016-06-25] MEDS ORDERED: BACITRACIN 50,000 UNITS IR ONE (17:05)
--- NOTE | 2016-06-25 17:27 | Anesthesiology Progress Note ---
Anesthesia Post Op Note Date & Time Jun 25, 2016 at 17:26 Vital Signs Pain Intensity: 0 Vital Signs Past 12 Hours Date Time Temp Pulse Resp B/P Pulse Ox O2 Delivery O2 Flow Rate FiO2 06/25/16 17:20 60 19 132/71 100 Mask 10 06/25/16 17:10 63 17 135/72 100 Mask 10 06/25/16 17:04 36.4 64 16 122/75 100 Mask 10 06/25/16 14:56 36.5 74 16 131/65 94 Room Air 06/25/16 08:05 36.4 65 16 128/84 97 Room Air 06/25/16 07:19 Room Air Notes Mental Status: alert / awake / arousable, participated in evaluation Pt Amnestic to Procedure: Yes Nausea / Vomiting: adequately controlled Pain: adequately controlled Airway Patency, RR, SpO2: stable & adequate BP & HR: stable & adequate Hydration State: stable & adequate Anesthetic Complications: no major complications apparent
[2016-06-25] MEDS: FERROUS GLUCONATE 324 MG TAB PO SCH (18:31)
--- NOTE | 2016-06-25 19:32 | Progress Note ---
Medicine Progress Note Date & Time of Visit: Jun 25, 2016 at 19:27. Subjective Patient seen and examined. Calf pain improved but still present. Swelling and redness improved per patient and . Objective Last 8 Hrs Date Time Temp Pulse Resp B/P Pulse Ox O2 Delivery O2 Flow Rate FiO2 06/25/16 19:12 36.4 73 18 117/74 94 Room Air 06/25/16 18:30 60 18 117/68 94 Room Air 06/25/16 18:00 97 Nasal Cannula 2.0 06/25/16 18:00 36.4 61 18 134/75 97 Nasal Cannula 2.0 06/25/16 17:50 69 21 116/76 95 Nasal Cannula 2 06/25/16 17:40 36.1 63 15 113/62 97 Nasal Cannula 2 06/25/16 17:30 62 16 124/73 97 Nasal Cannula 2 06/25/16 17:20 60 19 132/71 100 Mask 10 06/25/16 17:10 63 17 135/72 100 Mask 10 06/25/16 17:04 36.4 64 16 122/75 100 Mask 10 06/25/16 14:56 36.5 74 16 131/65 94 Room Air Physical Exam: General-awake; alert; NAD Eyes-EOMI; no scleral icterus Neck-no stridor; trachea midline Lungs-CTA bilaterally; no wheezes/crackles Heart-RRR; no m/r/g Abdomen-soft; NTND; nBS Extremities-erythema of left calf and bruises of LLE Neuro-no gross focal deficits Laboratory Results: Last 24 Hours Test 06/24/16 20:58 06/24/16 22:19 06/25/16 03:40 06/25/16 05:35 Bedside Glucose 100 mg/dl Erythrocyte Sedimentation Rate 47 mm/hr C-Reactive Protein 6.39 mg/dl Vancomycin Level Trough 12.2 mcg/ml White Blood Count 8.36 K/uL Red Blood Count 3.89 M/uL Hemoglobin 12.4 g/dL Hematocrit 35.8 % Mean Corpuscular Volume 92.0 fL Mean Corpuscular Hemoglobin 31.9 pg Mean Corpuscular Hemoglobin Concent 34.6 g/dl Platelet Count 291 K/uL Mean Platelet Volume 9.5 fL Neutrophils (%) (Auto) 58.1 % Lymphocytes (%) (Auto) 26.2 % Monocytes (%) (Auto) 12.1 % Eosinophils (%) (Auto) 2.8 % Basophils (%) (Auto) 0.2 % Neutrophils # (Auto) 4.86 K/uL Lymphocytes # (Auto) 2.19 K/uL Monocytes # (Auto) 1.01 K/uL Eosinophils # (Auto) 0.23 K/uL Basophils # (Auto) 0.02 K/uL RDW Standard Deviation 48.9 fL RDW Coefficient of Variation 14.9 % Immature Granulocyte % (Auto) 0.6 % Immature Granulocyte # (Auto) 0.05 K/uL Sodium Level 141 mmol/L Potassium Level 3.8 mmol/L Chloride Level 107 mmol/L Carbon Dioxide Level 25 mmol/L Anion Gap 9.0 mmol/L Blood Urea Nitrogen 14 mg/dl Creatinine 0.62 mg/dl Est Creatinine Clear Calc Drug Dose 116.1 ml/min Estimated GFR () 117.3 Estimated GFR (Non- 101.2 BUN/Creatinine Ratio 22.7 Random Glucose 92 mg/dl Calcium Level 8.6 mg/dl Test 06/25/16 06:01 06/25/16 07:20 06/25/16 12:08 06/25/16 18:18 Bedside Glucose 94 mg/dl 105 mg/dl 102 mg/dl Prothrombin Time 15.8 SECONDS Prothromb Time International Ratio 1.5 Date/Time Source Procedure Growth Status 06/25/16 16:30 Tissue Leg Lower Left Gram Stain Pending Received 06/25/16 16:30 Tissue Leg Lower Left Bacterial Culture Pending Received 06/25/16 16:30 Drainage-Deep Leg Lower Left Gram Stain Pending Received 06/25/16 16:30 Drainage-Deep Leg Lower Left Bacterial Culture Pending Received Assessment & Plan Patient is a 71 yr old male with PMH of DM II, Complete heart block s/p pacer, s /p AVR on Coumadin, PAF, HTN, HLP, who presented with Left LE pain predominantly calf associated with swelling, redness of 2 weeks duration. Venous duplex is negative for DVT but showed fluid collection Left LE cellulitis with hematoma Continue IV Vancomycin for now Blood cultures negative Venous Duplex No DVT Appreciate Orthopedic input Hold Coumadin for now S/p hematoma evacuation; cultures pending P.Afib Hold Coumadin in the setting of left leg hematoma DM II HbA1C: 6.6 Hold home meds ISS, Accu checks Complete heart block S/P Pacemaker placed 2003 and replaced 2013 Hypertension: Stable continue lisinopril, BB Dyslipidemia: continue statin DVT Px: SCDs Code Status Full code Consultants: Orthopedics Procedures: LE ultrasound No DVT within the left lower extremity. At the left popliteal fossa extending into the calf there is a 17 x 9 x 4 cm complex fluid collection. This is located deep to the subcutaneous fat. This could represent a hematoma related to prior trauma or possibly an abscess in the appropriate clinical setting. Recommend follow-up to resolution. CT LE A 16 x 6 x 5 cm predominantly hyperdense area within the medial gastrocnemius muscle. This is consistent with an intramuscular hematoma. An underlying infectious process is considered less likely but cannot be excluded by CT. This requires clinical evaluation. One month ultrasound follow-up can be performed to ensure complete resolution. Current Inpatient Medications: Current Inpatient Medications Medications (Trade) Dose Ordered Sig/Harpal Route Start Time Stop Time Status Last Admin Dose Admin Acetaminophen (Tylenol Tab) 650 mg Q4H PRN PO 06/23/16 16:00 07/23/16 15:59 Vancomycin HCl (Consult) 1 ea UD PRN N/A 06/23/16 16:05 07/23/16 16:04 Glucose (Glucose 40% Gel) 15-30 GRAMS 15 GRAMS... UD PRN PO 06/23/16 16:15 07/23/16 16:14 Glucose (Glucose Chew Tab) 4-8 Tablets 4 Tabl... UD PRN PO 06/23/16 16:15 07/23/16 16:14 Dextrose (Dextrose 50% 50ML Syringe) 25-50ML OF 50% DW IV FOR... UD PRN IV 06/23/16 16:15 07/23/16 16:14 Glucagon (Glucagon Inj) 1 mg UD PRN SQ 06/23/16 16:15 07/23/16 16:14 Atenolol (Tenormin Tab) 50 mg DAILY PO 06/24/16 09:00 07/24/16 08:59 06/25/16 08:44 50 MG Atorvastatin Calcium (Lipitor Tab) 80 mg QAM PO 06/24/16 09:00 07/24/16 08:59 Lisinopril (Zestril Tab) 5 mg DAILY PO 06/24/16 09:00 07/24/16 08:59 Multivitamins (Multivitamin Tab) 1 tab DAILY PO 06/24/16 09:00 07/24/16 08:59 Oxycodone/ Acetaminophen 2 tab 2 tab Q4H PRN PO 06/23/16 16:15 07/07/16 16:14 06/24/16 19:52 2 TAB Vancomycin HCl/ Sodium Chloride (Vancomycin Inj/ Nss 250ml) 274 ml @ 125 mls/hr Q12H IV 06/24/16 04:00 07/04/16 03:59 06/25/16 04:03 125 MLS/HR Morphine Sulfate (MoRPHine SULFATE INJ) 3 mg Q3HWA PRN IV 06/25/16 10:45 07/09/16 10:44 06/25/16 18:17 3 MG Fentanyl Citrate (Fentanyl Inj) 50 mcg Q5M PRN IV 06/25/16 16:00 06/25/16 21:00 Morphine Sulfate (MoRPHine SULFATE INJ) 2 mg Q5M PRN IV 06/25/16 16:00 06/25/16 21:00 Ondansetron HCl (Zofran Inj) 4 mg ONE PRN IV 06/25/16 16:00 06/25/16 21:00 Ephedrine Sulfate (EpHEDrine SULFATE INJ) 5 mg Q5M PRN IV 06/25/16 16:00 06/25/16 21:00 Atropine Sulfate (Atropine Sulfate 0.1MG/Ml Inj) 0.5 mg Q1M PRN IV 06/25/16 16:00 06/25/16 21:00 Magnesium Hydroxide (Milk Of Magnesia Susp) 30 ml Q6H PRN PO 06/25/16 17:00 07/25/16 16:59 Bisacodyl (Dulcolax Supp) 10 mg DAILY PRN [place] 06/25/16 17:00 07/25/16 16:59 Sodium Biphosphate/ Sodium Phosphate (Fleet Enema) 132 ml DAILY PRN OH 06/25/16 17:00 07/25/16 16:59 Diphenhydramine HCl (Benadryl Cap) 25 mg Q8H PRN PO 06/25/16 17:00 07/25/16 16:59 Diphenhydramine HCl (Benadryl Inj) 25 mg Q8H PRN IV 06/25/16 17:00 07/25/16 16:59 Al Hydrox/Mg Hydrox/Simethicone (Maalox Max Susp) 15 ml Q4H PRN PO 06/25/16 17:00 07/25/16 16:59 Zolpidem Tartrate (Ambien Tab) 5 mg HSZ PRN PO 06/25/16 17:00 07/25/16 16:59 Ondansetron HCl (Zofran Inj) 4 mg Q6H PRN IV 06/25/16 17:00 07/25/16 16:59 Metoclopramide HCl (Reglan Inj) 10 mg Q6H PRN IV 06/25/16 17:00 07/25/16 16:59 Ferrous Gluconate (Ferrous Gluconate Tab) 324 mg TIDM PO 06/25/16 17:45 07/25/16 17:44 06/25/16 18:31 324 MG Pantoprazole Sodium (Protonix Tab) 40 mg QAM PO 06/26/16 09:00 07/26/16 08:59 Insulin Aspart (novoLOG ASPART) SLIDING SCALE If C... ACHS SC 06/25/16 21:00 07/25/16 05:59
[2016-06-25] MEDS: OXYCODONE/ACETAMINOPHEN 5-325 TAB PO PRN (21:44)
[2016-06-26] MEDS: OXYCODONE/ACETAMINOPHEN 5-325 TAB PO PRN ×2 (02:42→14:36)
--- NOTE | 2016-06-26 03:02 | OPERATIVE REPORT ---
DATE OF OPERATION: 06/25/2016 SURGEON: Dr. Nba Kapoor. STRUCTURAL ENGINEERING TECHNICIAN: NORMA Moon. PREOPERATIVE DIAGNOSIS: Left calf hematoma versus plus or minus abscess. POSTOPERATIVE DIAGNOSIS: Left calf hematoma. PROCEDURE PERFORMED: I\T\D and evacuation of left calf hematoma. COMPLICATIONS: None. ESTIMATED BLOOD LOSS: 10 mL. TOURNIQUET TIME: 7 minutes at 300 mmHg. ANESTHESIA: General. SPECIMENS: Left hematoma fluid was sent for Gram stain and culture, as well as hematoma sent for tissue culture. FLUID REPLACEMENT: 500 mL of crystalloid fluid replacement. OPERATIVE INDICATIONS: The patient is a 71-year-old gentleman who has had about 2-week history of left calf pain and discomfort around [place] time. He was treated initially for some knee problems and concern was he was having a gout flare. He was put on a Medrol Dosepak and his knee was injected. His knee pain got markedly better but his calf pain continued to progress. He was recently admitted with a large hematoma. Of note, his INR was elevated and he has recently been placed on Coumadin for cardiac issues. The patient had significant discomfort. His sed rate and C-reactive protein were slightly elevated and he was indicated for I\T\D of the hematoma itself as well as for concerns of infection. OPERATIVE FINDINGS: Operative findings revealed a large hematoma. There are no signs of abscess or infection. OPERATIVE PROCEDURE: The patient taken to the operating room, identified and placed on the operating table in supine position. All contact areas were appropriately padded. The patient has been getting IV vancomycin. We did give him some additional clindamycin preoperatively. A general anesthetic was implemented. Left thigh tourniquet was then placed and left lower extremity was then prepped and draped in the usual sterile fashion. The left leg was elevated but not exsanguinated. The tourniquet was placed at 300 mmHg. A posterior medial approach to the medial aspect of the calf was then performed through a longitudinal incision, about 10 cm in length. Sharp dissection was carried out through the subcutaneous tissue directly down to the fascia. The fascia was incised and opened. He had a large hematoma which was probably at least 20 cm in the length. I was able to take my finger and opened the cavity completely and evacuated the whole hematoma. We did send some cultures off for stat Gram stain, aerobic and anaerobic culture as well as some of the clot for tissue culture. I irrigated the wound extensively. Used pulsatile lavage solution. We then let the tourniquet down for a final tourniquet time of 7 minutes. Hemostasis was assured with use of electrocautery. A Hemovac drain was then placed in the abscess cavity. The fascia was then closed with 2-0 Vicryl suture in a buried interrupted fashion. The skin was closed with 3-0 nylon suture in a horizontal mattress fashion. The leg was then cleaned and dried and a sterile dressing with Xeroform, 4 x 4, sterile Coban wrap, sterile cast padding and Jacinto bandage were applied. The patient was then brought out of general anesthesia and transferred to the recovery room in stable condition. The patient tolerated the procedure with no complications. All needle and sponge counts were correct at the end of the operation. I attest to the content of the Intraoperative Record and any orders documented therein. Any exceptions are noted below. DENTON
[2016-06-26 03:25] VITALS: BP 117/67; PULSE 59; TEMP 36.5; O2SAT 93
[2016-06-26] MEDS: VANCOMYCIN INJ 1,200 MG in SODIUM CHLORIDE 0.9% 250ML 250 ML IV SCH ×2 (04:22→15:37)
[2016-06-26 05:50] LABS: HEMATOCRIT 35.7 % (42-52); MEAN CELL VOLUME 93.5 fL (80-100); MEAN CORPUSCULAR HEMOGLOBIN 31.9 pg (25-34); MEAN CORPUSCULAR HGB CONC 34.2 g/dl (32-36); MEAN PLATELET VOLUME 9.4 fL (7.4-10.4); PLATELET COUNT 316 K/uL (130-400); RED BLOOD COUNT 3.82 M/uL (4.7-6.1); WHITE BLOOD COUNT 9.69 K/uL (4.8-10.8)
[2016-06-26 05:58] LABS: INR 1.5 (0.9-1.1); PROTHROMBIN TIME (PATIENT) 16.7 SECONDS (9.0-12.0)
[2016-06-26 06:27] LABS: BUN/CREATININE RATIO 18.4 (10-20); CALCIUM 8.4 mg/dl (8.5-10.1); CREATININE 0.76 mg/dl (0.60-1.40); POTASSIUM 4.2 mmol/L (3.5-5.1)
[2016-06-26 07:43] VITALS: BP 116/69; PULSE 64; TEMP 36.4; O2SAT 95
[2016-06-26] MEDS: FERROUS GLUCONATE 324 MG TAB PO SCH ×3 (08:53→17:54)
[2016-06-26] MEDS: INSULIN ASPART 100 UNITS/ML 3 ML PEN SC SCH ×4 (08:53→21:00)
[2016-06-26] MEDS: LISINOPRIL 5 MG TAB PO SCH (08:53)
[2016-06-26] MEDS: PANTOprazole SOD 40 MG TAB PO SCH (08:53)
[2016-06-26] MEDS: ATORVASTATIN 40 MG TAB PO SCH (08:54)
[2016-06-26] MEDS: MULTIVITAMIN TAB PO SCH (08:54)
[2016-06-26] MEDS ORDERED: MULTIVITAMIN TAB PO SCH (09:00)
--- NOTE | 2016-06-26 10:26 | Anesthesiology Progress Note ---
Anesthesia Post Op Note Date & Time Jun 26, 2016 at 10:24 Vital Signs Pain Intensity: 5.0 Vital Signs Past 12 Hours Date Time Temp Pulse Resp B/P Pulse Ox O2 Delivery O2 Flow Rate FiO2 06/26/16 07:43 36.4 64 16 116/69 95 Room Air 06/26/16 07:25 Room Air 06/26/16 03:25 36.5 59 18 117/67 93 Room Air 06/25/16 23:05 36.7 58 18 121/71 94 Room Air Notes Mental Status: alert / awake / arousable, participated in evaluation Pt Amnestic to Procedure: Yes Nausea / Vomiting: adequately controlled Pain: adequately controlled Airway Patency, RR, SpO2: stable & adequate BP & HR: stable & adequate Hydration State: stable & adequate Anesthetic Complications: no major complications apparent
[2016-06-26 11:12] VITALS: BP 110/69; PULSE 77; TEMP 36.5; O2SAT 94
[2016-06-26] MEDS: MAGNESIUM HYDROXIDE SUSP 30 ML UDC PO PRN ×2 (12:18→18:14)
--- NOTE | 2016-06-26 14:47 | PROGRESS NOTE ---
DATE: 06/26/2016 SUBJECTIVE: A 71-year-old gentleman postop day #1 from a left calf hematoma I\T\D. He is doing much better. He says he felt 100% better when he came up to the floor last night. He has been out and walking some. No chest pain or shortness of breath. Not feeling dizzy or lightheaded. OBJECTIVE: VITAL SIGNS: Temperature is 36.5. Vital signs stable. GENERAL: Reveals a healthy, pleasant, middle-aged male. He is sitting up in bed and talking to his . Looks comfortable. LUNGS: Clear to auscultation. HEART: Regular rate and rhythm. ABDOMEN: Soft, nontender, nondistended. EXTREMITIES: Grossly neurovascularly intact except as follows: Examination of the left lower extremity reveals the dressing to be clean, dry and intact. Drains in place. He can dorsiflex and plantarflex his foot appropriately. He is neurologically intact. Culture results were no growth to date. Gram stains many poly, no organisms seen. ASSESSMENT: A 71-year-old gentleman postop day #1 from incision and drainage of a left calf hematoma. There were no clinical signs of infection or abscess. This looked like a straight hematoma. He did have some cellulitis appearance apparently on admission to the hospital. PLAN: We are going to leave the drains in overnight and take them out tomorrow. We will keep the compressive dressing on. I do think it probably best to change him to probably 2 weeks of p.o. antibiotics and can be likely discharged tomorrow. It is okay to go back on his Coumadin, but we really need to be vigilant about trying to keep his INR between 2 and 3.
[2016-06-26 15:09] VITALS: BP 102/60; PULSE 61; TEMP 36.4; O2SAT 96
[2016-06-26] MEDS ORDERED: WARFARIN SOD 2 MG TAB PO ONE (16:00)
--- NOTE | 2016-06-26 19:10 | Progress Note ---
Medicine Progress Note Date & Time of Visit: Jun 26, 2016 at 19:07. Subjective Patient seen and examined. Left leg feels significantly improved after surgery. Pain significantly improved. Objective Last 8 Hrs Date Time Temp Pulse Resp B/P Pulse Ox O2 Delivery O2 Flow Rate FiO2 06/26/16 16:00 Room Air 06/26/16 15:09 36.4 61 18 102/60 96 Room Air 06/26/16 11:12 36.5 77 16 110/69 94 Room Air Physical Exam: General-awake; alert; NAD Eyes-EOMI; no scleral icterus Neck-no stridor; trachea midline Lungs-CTA bilaterally; no wheezes/crackles Heart-RRR; no m/r/g Abdomen-soft; NTND; nBS Extremities-LLE bandage and drain c/d/i Neuro-no gross focal deficits Laboratory Results: Last 24 Hours Test 06/25/16 21:05 06/26/16 05:29 06/26/16 07:53 06/26/16 12:05 Bedside Glucose 126 mg/dl 92 mg/dl 169 mg/dl White Blood Count 9.69 K/uL Red Blood Count 3.82 M/uL Hemoglobin 12.2 g/dL Hematocrit 35.7 % Mean Corpuscular Volume 93.5 fL Mean Corpuscular Hemoglobin 31.9 pg Mean Corpuscular Hemoglobin Concent 34.2 g/dl RDW Standard Deviation 50.5 fL RDW Coefficient of Variation 14.9 % Platelet Count 316 K/uL Mean Platelet Volume 9.4 fL Prothrombin Time 16.7 SECONDS Prothromb Time International Ratio 1.5 Sodium Level 139 mmol/L Potassium Level 4.2 mmol/L Chloride Level 103 mmol/L Carbon Dioxide Level 28 mmol/L Anion Gap 8.0 mmol/L Blood Urea Nitrogen 14 mg/dl Creatinine 0.76 mg/dl Est Creatinine Clear Calc Drug Dose 94.7 ml/min Estimated GFR () 107.9 Estimated GFR (Non- 93.1 BUN/Creatinine Ratio 18.4 Random Glucose 102 mg/dl Calcium Level 8.4 mg/dl Test 06/26/16 16:59 Bedside Glucose 108 mg/dl Assessment & Plan Patient is a 71 yr old male with PMH of DM II, Complete heart block s/p pacer, s /p AVR on Coumadin, PAF, HTN, HLP, who presented with Left LE pain predominantly calf associated with swelling, redness of 2 weeks duration. Venous duplex is negative for DVT but showed fluid collection Left LE cellulitis with hematoma Continue IV Vancomycin for now Blood cultures negative Venous Duplex No DVT Appreciate Orthopedic input Resume Coumadin S/p hematoma evacuation; cultures pending P.Afib Resume Coumadin DM II HbA1C: 6.6 Hold home meds ISS, Accu checks Complete heart block S/P Pacemaker placed 2003 and replaced 2013 Hypertension: Stable continue lisinopril, BB Dyslipidemia: continue statin DVT Px: SCDs Code Status Full code Anticipate discharge home tomorrow. Consultants: Orthopedics Procedures: LE ultrasound No DVT within the left lower extremity. At the left popliteal fossa extending into the calf there is a 17 x 9 x 4 cm complex fluid collection. This is located deep to the subcutaneous fat. This could represent a hematoma related to prior trauma or possibly an abscess in the appropriate clinical setting. Recommend follow-up to resolution. CT LE A 16 x 6 x 5 cm predominantly hyperdense area within the medial gastrocnemius muscle. This is consistent with an intramuscular hematoma. An underlying infectious process is considered less likely but cannot be excluded by CT. This requires clinical evaluation. One month ultrasound follow-up can be performed to ensure complete resolution. Current Inpatient Medications: Current Inpatient Medications Medications (Trade) Dose Ordered Sig/Harpal Route Start Time Stop Time Status Last Admin Dose Admin Acetaminophen (Tylenol Tab) 650 mg Q4H PRN PO 06/23/16 16:00 07/23/16 15:59 Vancomycin HCl (Consult) 1 ea UD PRN N/A 06/23/16 16:05 07/23/16 16:04 Glucose (Glucose 40% Gel) 15-30 GRAMS 15 GRAMS... UD PRN PO 06/23/16 16:15 07/23/16 16:14 Glucose (Glucose Chew Tab) 4-8 Tablets 4 Tabl... UD PRN PO 06/23/16 16:15 07/23/16 16:14 Dextrose (Dextrose 50% 50ML Syringe) 25-50ML OF 50% DW IV FOR... UD PRN IV 06/23/16 16:15 07/23/16 16:14 Glucagon (Glucagon Inj) 1 mg UD PRN SQ 06/23/16 16:15 07/23/16 16:14 Atenolol (Tenormin Tab) 50 mg DAILY PO 06/24/16 09:00 07/24/16 08:59 06/26/16 08:54 50 MG Atorvastatin Calcium (Lipitor Tab) 80 mg QAM PO 06/24/16 09:00 07/24/16 08:59 06/26/16 08:54 80 MG Lisinopril (Zestril Tab) 5 mg DAILY PO 06/24/16 09:00 07/24/16 08:59 06/26/16 08:53 5 MG Multivitamins (Multivitamin Tab) 1 tab DAILY PO 06/24/16 09:00 07/24/16 08:59 06/26/16 08:54 1 TAB Oxycodone/ Acetaminophen 2 tab 2 tab Q4H PRN PO 06/23/16 16:15 07/07/16 16:14 06/26/16 14:36 2 TAB Vancomycin HCl/ Sodium Chloride (Vancomycin Inj/ Nss 250ml) 274 ml @ 125 mls/hr Q12H IV 06/24/16 04:00 07/04/16 03:59 06/26/16 15:37 125 MLS/HR Morphine Sulfate (MoRPHine SULFATE INJ) 3 mg Q3HWA PRN IV 06/25/16 10:45 07/09/16 10:44 06/25/16 18:17 3 MG Magnesium Hydroxide (Milk Of Magnesia Susp) 30 ml Q6H PRN PO 06/25/16 17:00 07/25/16 16:59 06/26/16 18:14 30 ML Bisacodyl (Dulcolax Supp) 10 mg DAILY PRN AK 06/25/16 17:00 07/25/16 16:59 Sodium Biphosphate/ Sodium Phosphate (Fleet Enema) 132 ml DAILY PRN AK 06/25/16 17:00 07/25/16 16:59 Diphenhydramine HCl (Benadryl Cap) 25 mg Q8H PRN PO 06/25/16 17:00 07/25/16 16:59 Diphenhydramine HCl (Benadryl Inj) 25 mg Q8H PRN IV 06/25/16 17:00 07/25/16 16:59 Al Hydrox/Mg Hydrox/Simethicone (Maalox Max Susp) 15 ml Q4H PRN PO 06/25/16 17:00 07/25/16 16:59 Zolpidem Tartrate (Ambien Tab) 5 mg HSZ PRN PO 06/25/16 17:00 07/25/16 16:59 Ondansetron HCl (Zofran Inj) 4 mg Q6H PRN IV 06/25/16 17:00 07/25/16 16:59 Metoclopramide HCl (Reglan Inj) 10 mg Q6H PRN IV 06/25/16 17:00 07/25/16 16:59 Ferrous Gluconate (Ferrous Gluconate Tab) 324 mg TIDM PO 06/25/16 17:45 07/25/16 17:44 06/26/16 17:54 324 MG Pantoprazole Sodium (Protonix Tab) 40 mg QAM PO 06/26/16 09:00 07/26/16 08:59 06/26/16 08:53 40 MG Insulin Aspart (novoLOG ASPART) SLIDING SCALE If C... ACHS SC 06/25/16 21:00 07/25/16 05:59 06/26/16 17:56 1 UNITS
--- NOTE | 2016-06-26 20:04 | Discharge Instructions ---
Discharge Instructions Admission Reason for Admission: Calf Pain Discharge Discharge Diagnosis / Problem: I & D Left Calf Hematoma Discharge Goals Goal(s): Decrease discomfort, Improve function, Improve disease control, Therapeutic intervention Activity Recommendations Activity Limitations: per Instructions/Follow-up section Weightbearing Status: Left weightbearing . Instructions / Follow-Up Instructions / Follow-Up Follow-up 07/01/16. Call [phone] for appointment time Leave dressing/bandage in place until return to clinic appointment, Current Hospital Diet Patient's current hospital diet: Diabetes Type 2 Diet Discharge Diet Recommended Diet: Diabetes Type 2 Diet Procedures Procedures Performed: I & D + Evacuation of Calf Hematoma Pending Studies Studies pending at discharge: no Laboratory Results Hemoglobin A1c Test 06/24/16 05:07 Range/Units Estimated Average Glucose 143 mg/dl Hemoglobin A1c 6.6 H 4.5-5.6 % Medical Emergencies . Who to Call and When: Medical Emergencies: If at any time you feel your situation is an emergency, please call 911 immediately. . Non-Emergent Contact Non-Emergency issues call your: Primary Care Provider . "Provider Documentation" section prepared by Nba Kapoor. VTE Core Measure Inpt VTE Proph given/why not?: Warfarin (Coumadin), T.ELena Ge, SCD's
[2016-06-26 23:32] VITALS: BP 126/68; PULSE 62; TEMP 36.9; O2SAT 94
[2016-06-27] MEDS: VANCOMYCIN INJ 1,200 MG in SODIUM CHLORIDE 0.9% 250ML 250 ML IV SCH (03:44)
[2016-06-27 03:57] LABS: HEMATOCRIT 35.2 % (42-52); MEAN CELL VOLUME 92.4 fL (80-100); MEAN CORPUSCULAR HEMOGLOBIN 31.8 pg (25-34); MEAN CORPUSCULAR HGB CONC 34.4 g/dl (32-36); MEAN PLATELET VOLUME 9.4 fL (7.4-10.4); PLATELET COUNT 316 K/uL (130-400); RED BLOOD COUNT 3.81 M/uL (4.7-6.1); WHITE BLOOD COUNT 9.59 K/uL (4.8-10.8)
[2016-06-27 04:10] LABS: INR 1.5 (0.9-1.1); PROTHROMBIN TIME (PATIENT) 16.7 SECONDS (9.0-12.0)
[2016-06-27 06:42] VITALS: BP 121/71; PULSE 61; TEMP 36.6; O2SAT 94
--- NOTE | 2016-06-27 07:40 | PROGRESS NOTE ---
DATE: 06/27/2016 SUBJECTIVE: 71-year-old gentleman postop day 2 from I\T\D of a left calf hematoma. He is doing well. His pain is 100% better. No chest pain or shortness of breath. OBJECTIVE: VITAL SIGNS: Temperature 36.6. Vital signs stable. PHYSICAL EXAMINATION: GENERAL: Physical examination reveals a healthy, pleasant, middle-aged male. He is sitting up in bed eating breakfast and looks comfortable. EXTREMITIES: Examination of the left leg reveals the dressing to be clean, dry and intact. No significant drainage. He can dorsiflex and plantarflex his foot appropriately. He is neurologically intact. LABS: Hemoglobin 12.1, hematocrit 35.2. INR 1.5. Culture results are no growth. IMPRESSION: 71-year-old gentleman postop day 2 from I\T\D of the left calf hematoma likely related to elevated INR on Coumadin use. Doing much better since the I\T\D. Pain is all resolved. I do not think there is any significant infection. PLAN: 1. DVT prophylaxis including thigh-high TEDs, SCDs, and Coumadin. We need to really be careful to make sure we keep his INR between 2 and 3 and no higher. 2. Weightbearing status. He can weightbear as tolerated. 3. Wound care. We are going to leave this bandage on and he is going to come back and see me on Friday for a dressing change. 4. Disposition: He is orthopedically stable and acceptable for discharge today. I removed his drains.
[2016-06-27] MEDS: PANTOprazole SOD 40 MG TAB PO SCH (09:17)
[2016-06-27] MEDS: LISINOPRIL 5 MG TAB PO SCH (09:17)
[2016-06-27] MEDS: ATORVASTATIN 40 MG TAB PO SCH (09:18)
[2016-06-27] MEDS: MULTIVITAMIN TAB PO SCH (09:18)
[2016-06-27] MEDS: FERROUS GLUCONATE 324 MG TAB PO SCH (09:18)
[2016-06-27] MEDS: INSULIN ASPART 100 UNITS/ML 3 ML PEN SC SCH (09:24)
[2016-06-27] MEDS ORDERED: SULF800T23 PO (09:48)
[2016-06-27 10:48] VITALS: BP 121/71; PULSE 61; TEMP 36.6; O2SAT 94
--- NOTE | 2016-06-27 18:04 | Discharge Summary ---
Discharge Summary Admission Date: Jun 23, 2016 at 15:40 Discharge Date: Jun 27, 2016 Discharge Disposition: Home Principal Diagnosis: Left calf hematoma and cellulitis Procedures: LE ultrasound No DVT within the left lower extremity. At the left popliteal fossa extending into the calf there is a 17 x 9 x 4 cm complex fluid collection. This is located deep to the subcutaneous fat. This could represent a hematoma related to prior trauma or possibly an abscess in the appropriate clinical setting. Recommend follow-up to resolution. CT LE A 16 x 6 x 5 cm predominantly hyperdense area within the medial gastrocnemius muscle. This is consistent with an intramuscular hematoma. An underlying infectious process is considered less likely but cannot be excluded by CT. This requires clinical evaluation. One month ultrasound follow-up can be performed to ensure complete resolution. Consultations: Orthopedics Medication Reconciliation New Medications: Sulfa/Trimethoprim (Bactrim Ds 800MG/160MG) Tab 1 TAB PO BID for 3 Days, #5 TAB Continued Medications: Aspirin (Aspirin EC Low Dose) 81 Mg Ectab 81 MG PO DAILY Atenolol (Tenormin) 50 Mg Tab 50 MG PO DAILY, 0 Refills Atorvastatin (Lipitor) 40 Mg Tab 80 MG PO DAILY, 0 Refills Bioflavonoid Products (Dionna-C) 1 Tab Tab 1000 MG PO DAILY Epinephrine (Epipen) 0.3 Mg/0.3 Ml Inj 0.3 MG IM UD PRN for Chest Pain Glimepiride (Glimepiride) 1 Mg Tab 1 TAB PO DAILY, TAB Glucosamine-Chondroitin (Glucosamine/Chondroitin) 500 Mg/400 Mg Cap 1 TAB PO DAILY Lisinopril (Zestril) 5 Mg Tab 5 MG PO DAILY Metformin Hcl (Glucophage) 1,000 Mg Tab 1000 MG PO BID Multivitamin (Multivitamin) Tab 1 TAB DAILY Oxycodone/Acetaminophen 5MG/325MG (Percocet 5MG/325MG) Tab 1-2 TAB PO Q4H PRN for Pain, #14 TAB Warfarin Sodium (Coumadin) 5 Mg Tab 2.5 MG PO 3XWK, TAB Take 2.5 mg PO Sun, Tues, Thurs; take 1.25mg PO all other days Warfarin Sodium (Coumadin) 5 Mg Tab 1.25 MG PO 4XWK, TAB Take 2.5 mg PO Sun, Tues, Thurs; take 1.25mg PO all other days Admission Information HPI (per Admitting provider): This is a 71 y/o male with PMHx of DM 2, Complete heart block s/p pacer, s/p AVR on Coumadin, PAF, HTN, Dyslipidemia and ither problems as outlined below who presents to the ED c/o L calf pain x 2 weeks . Pt reports that 2 weeks ago he developed L knee pain that radiated into the calf and ankle. He was seen in the ED for for his sxs and LLE US revealed a small fluid collection behind his knee. He was seen by ortho, Dr. Kapoor, who attempted to drain the knee and gave a steroid injection. Pt reports that the steroid injection helped with the knee pain however the calf pain has gotten progressively worse. He describes the calf pain as 10/10 stabbing pain. His sxs are aggravated with standing or bearing weight therefore he has been using a walker for the past week. His calf is significantly swollen and starting yesterday he noticed erythema extending from the knee to the ankle with assoc warmth to touch. Pt has a history of PAf on Coumadin. He has no history of DVT. Pt denies fever/chills, diaphoresis, chest pain, palpitations, SOB, wheezing, abd pain, N/V, bowel or bladder issues , lightheadedness/dizziness. In the ED, vitals are stable. Pt is afebrile with leukocytosis >12k. INR 1.4. LLE US + large fluid collection. Pt will be admitted for further evaluation and treatment. Physical Exam (per Admitting): General Appearance: WD/WN, no apparent distress, + pertinent finding (Pt si laying in bed with significant other at bedside ) Head: normocephalic, atraumatic Eyes: normal inspection ENT: hearing grossly normal Neck: supple Respiratory/Chest: chest non-tender, lungs clear, normal breath sounds, no respiratory distress Cardiovascular: regular rate, rhythm, no murmur Abdomen/GI: normal bowel sounds, non tender, soft Back: normal inspection Extremities/Musculoskelatal: + pertinent finding (LLE with erythema and edema extending from knee to ankle with eccymosis noted to medial aspect of knee and calf; diffusely tender to touch; no wounds or skin openings noted) Neurologic/Psych: alert, normal mood/affect, oriented x 3 Skin: + pertinent finding (see above) Hospital Course Patient is a 71 yr old male with PMH of DM II, Complete heart block s/p pacer, s /p AVR on Coumadin, PAF, HTN, HLP, who presented with Left LE pain ( predominantly calf) associated with swelling, redness of 2 weeks duration. Left LE cellulitis with hematoma Patient received Vancomycin during hospitalization and was discharged on Bactrim to complete course. Blood cultures were negative. Venous Duplex was negative for DVT. Orthopedics was consulted. Patient had evacuation of left calf hematoma. Wound cultures were negative. Coumadin was initially held and was then restarted prior to discharge. Hemoglobin remained stable and patient did not require any transfusions. Patient was continued on the remainder of his home medications. Patient deemed stable for discharge with Orthopedics and Family Medicine follow up. PE on discharge: General- awake; alert; NAD Eyes- EOMI; no scleral icterus Neck- no stridor; trachea midline Lungs- CTA bilaterally; no wheezes/crackles Heart- RRR; no m/r/g Abdomen- soft; NTND; nBS Back- no gross abnormalities Extremities- left LE bandage c/d/i Neuro- no gross focal deficits Skin- no appreciable rash; +bruise to LLE . Total time spent on discharge = This includes examination of the patient, discharge planning, medication reconciliation, and communication with other providers. Discharge Instructions Discharge Instructions Admission Reason for Admission: Calf Pain Discharge Discharge Diagnosis / Problem: I & D Left Calf Hematoma Discharge Goals Goal(s): Decrease discomfort, Improve function, Improve disease control, Therapeutic intervention Activity Recommendations Activity Limitations: per Instructions/Follow-up section Weightbearing Status: Left weightbearing . Instructions / Follow-Up Instructions / Follow-Up Follow-up 07/01/16. Call [phone] for appointment time Leave dressing/bandage in place until return to clinic appointment, Current Hospital Diet Patient's current hospital diet: Diabetes Type 2 Diet Discharge Diet Recommended Diet: Diabetes Type 2 Diet Procedures Procedures Performed: I & D + Evacuation of Calf Hematoma Pending Studies Studies pending at discharge: no Laboratory Results Hemoglobin A1c Test 06/24/16 05:07 Range/Units Estimated Average Glucose 143 mg/dl Hemoglobin A1c 6.6 H 4.5-5.6 % Medical Emergencies . Who to Call and When: Medical Emergencies: If at any time you feel your situation is an emergency, please call 911 immediately. . Non-Emergent Contact Non-Emergency issues call your: Primary Care Provider . "Provider Documentation" section prepared by Nba Kapoor. VTE Core Measure Inpt VTE Proph given/why not?: Warfarin (Coumadin), Eleazar Stockings, SCD's <Electronically signed by Nba Kapoor M.D.> Signed: 06/26/162003 Signed: The status of this report is Signed * If report status is Draft, the document has not been finalized by the responsible provider. Addendum: 06/27/16 0946 Addendum: Delmi Finley MD on 06/27/16 @ 09:46 Discharge Inst - Addendum Addendum Notes: Please follow up with Family Medicine Dr. Kang on July 04 at 4:10pm. Please start the prescription for Bactrim this evening. You will take one tablet tonight. Then twice a day on Friday and Friday, and then you will be finished with the course of antibiotic. Additional Copies To Francoise Kang M.D.
[2016-10-15] MEDS ORDERED: LISI-729 PO (06:29)
[2016-10-15] MEDS ORDERED: METF-384 PO (06:29)
[2016-10-15] MEDS ORDERED: BIOF500T PO (06:29)
[2016-10-15] MEDS ORDERED: EPP3/2 IM (06:29)
[2016-10-15] MEDS ORDERED: ASPEC81 PO (06:29)
[2016-10-15] MEDS ORDERED: GLIM1TAB2 PO (12:25)
[2016-10-15] MEDS ORDERED: GLUC1CAP33 PO (12:57)
[2016-10-15] MEDS ORDERED: MULT-506 (14:16)
[2016-10-15] MEDS ORDERED: WARF5TAB90 PO ×2 (16:03)
[2016-10-15] MEDS ORDERED: CMD/25 PO (16:36)
[2016-10-15] MEDS ORDERED: NTRSLP4 (16:36)
[2016-10-15] MEDS ORDERED: VTMD1000 PO (16:36)
[2016-10-15] MEDS ORDERED: ATOR-24 PO (23:20)
[2016-10-15] MEDS ORDERED: ATEN50TA8 PO (23:20)
[2016-10-17] MEDS ORDERED: PRED10TA PO (12:25)
== END 2016-06-27 12:55 | disposition home or self-care (01) | DRG 603 ==
LOC: ENRESERVDT → ENRESERVTM → C.EDB 11:28 → C.3E 15:40
PROVIDERS: ADMIT Internal Medicine; ATTEND Internal Medicine
PROC: 0JCP0ZZ Extirpation of Matter from Left Lower Leg Subcutaneous Tissue and Fascia, Open Approach (ICD-10-PCS; principal; 2016-06-25 14:15)
DX: L03.116 Cellulitis of left lower limb (principal); E11.9 Type 2 diabetes mellitus without complications; Z95.0 Presence of cardiac pacemaker; Z79.01 Long term (current) use of anticoagulants; I48.0 Paroxysmal atrial fibrillation; I10 Essential (primary) hypertension; E78.5 Hyperlipidemia, unspecified; Z87.01 Personal history of pneumonia (recurrent); Z95.2 Presence of prosthetic heart valve; Z83.3 Family history of diabetes mellitus; Z82.49 Family history of ischemic heart disease and other diseases of the circulatory system; F17.210 Nicotine dependence, cigarettes, uncomplicated; Z88.8 Allergy status to other drugs, medicaments and biological substances; Z91.048 Other nonmedicinal substance allergy status; Z91.030 Bee allergy status; Z79.82 Long term (current) use of aspirin; Z79.899 Other long term (current) drug therapy; R79.1 Abnormal coagulation profile; D72.829 Elevated white blood cell count, unspecified; M79.81 Nontraumatic hematoma of soft tissue

== ENCOUNTER 2016-08-03 09:38 | Emergency (ER) | payer OTHER ==
[~2016-08-03] VITALS: Ht 177.8 cm; Wt 77.3 kg
[~2016-08-03 09:38] MED LIST changes: -CMD25 PO; -DOCU-94 PO; -SENN1TAB77 PO; -WARF2.5T8 PO
[2016-08-03 09:42] VITALS: TEMP 36.4; Ht 177.8 cm; Wt 77.3 kg
[2016-08-03] MEDS ORDERED: OXYCODONE HCL IR 5 MG TAB (IMMEDIATE RELEASE) PO STA (10:03)
[2016-08-03 10:30] LABS: BASO % 0.2 %; BASO ABS # 0.02 K/uL (0-0.2); COMPLETE YES; EOS % 1.6 %; HEMATOCRIT 41.7 % (42-52); IG% 0.2 %; LYMPH % 16.5 %; LYMPH ABS # 1.67 K/uL (1.2-3.4); MEAN CELL VOLUME 91.6 fL (80-100); MEAN CORPUSCULAR HEMOGLOBIN 31.6 pg (25-34); MEAN CORPUSCULAR HGB CONC 34.5 g/dl (32-36); MEAN PLATELET VOLUME 10.2 fL (7.4-10.4); NEUT % 68.5 %; PLATELET COUNT 268 K/uL (130-400); RED BLOOD COUNT 4.55 M/uL (4.7-6.1); WHITE BLOOD COUNT 10.11 K/uL (4.8-10.8)
--- NOTE | 2016-08-03 10:45 | DIAGNOSTIC IMAGING REPORT ---
ADDENDUM Addendum: Right ankle radiographs were also obtained and added to this exam which could not be at time of dictation. Alignment of the right ankle is anatomic. Talar dome is intact. No acute fracture is present. There is mild soft tissue swelling. Posterior and plantar calcaneal spurring is noted. There is pes planus deformity. Electronically signed by: Dennis Sher M.D. 08/03/2016 12:04 PM Dictated Date/Time: 08/03/2016 12:02 PM ORIGINAL REPORT RIGHT FOOT MIN 3 VIEWS ROUTINE CLINICAL HISTORY: Proximal right foot pain and swelling. No recent trauma. COMPARISON: None FINDINGS: There is spurring of the posterior calcaneus with calcifications projecting of the distal Achilles. The tarsometatarsal joints are intact. There is no acute fracture. Several ossicles adjacent to the midfoot are chronic. 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 No suspicious lesion is present. No erosions are identified. IMPRESSION: 1. No acute fracture or dislocation of the right foot. 2. Plantar and posterior calcaneal spurring with distal Achilles insertional calcification. 3. 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 No erosions. Electronically signed by: Dennis Sher M.D. 08/03/2016 10:44 AM Dictated Date/Time: 08/03/2016 10:41 AM
[2016-08-03 10:52] LABS: BUN/CREATININE RATIO 20.6 (10-20); C-REACTIVE PROTEIN 11.4 mg/dl (0-0.29); CALCIUM 9.7 mg/dl (8.5-10.1); CREATININE 0.82 mg/dl (0.60-1.40); POTASSIUM 4.1 mmol/L (3.5-5.1); URIC ACID 4.4 mg/dl (2.6-7.2)
[2016-08-03 10:59] LABS: INR 2.7 (0.9-1.1); PARTIAL THROMBOPLASTIN RATIO 1.9; PROTHROMBIN TIME (PATIENT) 30.5 SECONDS (9.0-12.0)
[2016-08-03 11:24] LABS: LYME DISEASE AB IGG NEG (NEG); LYME DISEASE AB IGM NEG (NEG)
[2016-08-03] MEDS ORDERED: OXYC1TAB3 PO (12:03)
[2016-08-03] MEDS ORDERED: PRED50TA PO (12:03)
[2016-08-03 12:14] VITALS: BP 128/64; PULSE 60; O2SAT 95
--- NOTE | 2016-08-03 19:09 | EMERGENCY ROOM VISIT NOTE ---
History Report prepared by Audra: Aly Sanz Under the Supervision of: Dr. Lionel Lancaster M.D. First contact with patient: 09:54 Chief Complaint: FOOT PAIN Stated Complaint: SWELLING/PAIN TO RIGHT ANKLE History of Present Illness The patient is a 71 year old male who presents to the Emergency Room with complaints of right foot pain that began 2 days ago. He rates his pain a 9/10 in severity. The patient reports trying to get out of bed in the middle of night when the pain began. He states that it was so bad that he could not walk to the bathroom. He states the pain is from the ankle inferiorly down the foot. The patient notes some right ankle erythema and edema that is abnormal. The patient took some Tylenol to moderate the pain. The patient was put on Coumadin in May due to his history of Atrial Fibrillation. They are having trouble stabilizing his INR levels. He had a hematoma drained from his left calf. He notes that it is tender and swollen as well. The patient reports he has had Lyme Disease many years ago. Patient denies LOC, headache, fevers, chills, diaphoresis, visual changes, neck pain, chest pain, breathing difficulties, nausea, vomiting, abdominal pain, back pain, melena, hematochezia, urinary symptoms, numbness, weakness, lymphadenopathy, rash, or other complaints. Source of History: patient Onset: two days ago Position: ankle (right), foot (right) Symptom Intensity: 9/10 Quality: ache Timing: other (persistent) Note: The patient notes some abnormal ankle erythema and edema. Review of Systems See HPI for pertinent positives and negatives. A total of ten systems were reviewed and were otherwise negative. Past Medical & Surgical Medical Problems: (1) Calf pain (2) Diabetes mellitus, type II (3) Dyslipidemia (4) Heart disease (5) Hypertension (6) Left Calf HEmatoma (7) Pacemaker (8) Paroxysmal atrial fibrillation (9) Pneumonia Surgical Problems: (1) H/O vasectomy (2) History of carpal tunnel surgery (3) S/P aortic valve replacement (4) S/P AVR (5) Status post right knee replacement Family History Diabetes mellitus FHx: heart disease Hypertension Social History Smoking Status: Current Every Day Smoker Alcohol Use: occasionally Drug Use: none Marital Status: Occupation Status: retired Current/Historical Medications Scheduled Aspirin (Aspirin EC Low Dose), 81 MG PO DAILY Atenolol (Tenormin), 50 MG PO DAILY Atorvastatin (Lipitor), 80 MG PO DAILY Bioflavonoid Products (Dionna-C), 1,000 MG PO DAILY Glimepiride (Glimepiride), 1 TAB PO DAILY Glucosamine-Chondroitin (Glucosamine/Chondroitin), 1 TAB PO DAILY Lisinopril (Zestril), 5 MG PO DAILY Metformin Hcl (Glucophage), 1,000 MG PO BID Multivitamin (Multivitamin), 1 TAB DAILY Prednisone (Prednisone), 50 MG PO DAILY Warfarin Sodium (Coumadin), 2.5 MG PO 3XWK Warfarin Sodium (Coumadin), 1.25 MG PO 4XWK Scheduled PRN Epinephrine (Epipen), 0.3 MG IM UD PRN for Chest Pain Oxycodone Ir (Roxicodone Ir), 1-2 TAB PO Q4H PRN for Pain Allergies Coded Allergies: Adhesives (Verified Allergy, Unknown, blisters with surgical glue , ) Cephalexin (Verified Allergy, Unknown, hives, 08/03/16) Honey Bee (Verified Allergy, Unknown, 08/03/16) Physical Exam Vital Signs Date Time Temp Pulse Resp B/P Pulse Ox O2 Delivery O2 Flow Rate FiO2 08/03/16 12:14 60 16 128/64 95 Room Air 08/03/16 09:42 36.4 80 18 103/51 93 Room Air Physical Exam GENERAL: Awake, alert, well-appearing, in no distress HENT: Normocephalic, atraumatic. Oropharynx unremarkable. EYES: Normal conjunctiva. Sclera non-icteric. NECK: Supple. No nuchal rigidity. FROM. No JVD. RESPIRATORY: Clear to auscultation. CARDIAC: Regular rate, normal rhythm. Extremities warm and well perfused. Pulses equal. ABDOMEN: Soft, non-distended. No tenderness to palpation. No rebound or guarding. No masses. MUSCULOSKELETAL: Chest examination reveals no tenderness. No joint edema. LOWER EXTREMITIES: Calves are equal size bilaterally and non-tender. Left calf, there was a healing wound on the posterior left aspect. Tenderness and swelling about the right ankle joint. Limited ROM secondary to pain. Chronic venous discoloration. NEURO: Normal sensorium. No sensory or motor deficits noted. SKIN: No rash or jaundice noted. Medical Decision & Procedures ER Provider Diagnostic Interpretation: X-ray: Per my interpretation, radiologist review. RIGHT FOOT MIN 3 VIEWS ROUTINE CLINICAL HISTORY: Proximal right foot pain and swelling. No recent trauma. COMPARISON: None Findings: There is spurring of the posterior calcaneus with calcifications projecting of the distal Achilles. The tarsometatarsal joints are intact. There is no acute fracture. Several ossicles adjacent to the midfoot are chronic. 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 No suspicious lesion ins present. No erosions are identified. IMPRESSION: 1. No acute fracture or dislocation of the right foot. 2. Plantar and posterior calcaneal spurring with distal Achilles insertional calcification. 3. 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 No erosions. Electronically signed by: Dennis Sher M.D. 08/03/2016 10:44 AM Dictated Date/Time: 08/03/2016 10:41 AM Addended on 08/03/2016 12:04 PM by Dennis Sher M.D. Addendum: Right ankle radiographs were also obtained and added to this exam which could not be at time of dictation. Alignment of the right ankle is anatomic. Talar dome is intact. No acute fracture is present. There is mild soft tissue swelling. Posterior and plantar calcaneal spurring is noted. There is pes planus deformity. Electronically signed by: Dennis Sher M.D. 08/03/2016 12:04 PM Dictated Date/Time: 08/03/2016 12:02 PM Laboratory Results 08/03/16 10:21 Red Blood Count 4.55, Mean Corpuscular Volume 91.6, Mean Corpuscular Hemoglobin 31.6, Mean Corpuscular Hemoglobin Concent 34.5, Mean Platelet Volume 10.2, Neutrophils (%) (Auto) 68.5, Lymphocytes (%) (Auto) 16.5, Monocytes (%) (Auto) 13.0, Eosinophils (%) (Auto) 1.6, Basophils (%) (Auto) 0.2, Neutrophils # (Auto ) 6.93, Lymphocytes # (Auto) 1.67, Monocytes # (Auto) 1.31, Eosinophils # (Auto ) 0.16, Basophils # (Auto) 0.02 08/03/16 10:21 Test 2/18/17 10:21 White Blood Count 10.11 K/uL (4.8-10.8) Red Blood Count 4.55 M/uL (4.7-6.1) Hemoglobin 14.4 g/dL (14.0-18.0) Hematocrit 41.7 % (42-52) Mean Corpuscular Volume 91.6 fL (80-100) Mean Corpuscular Hemoglobin 31.6 pg (25-34) Mean Corpuscular Hemoglobin Concent 34.5 g/dl (32-36) Platelet Count 268 K/uL (130-400) Mean Platelet Volume 10.2 fL (7.4-10.4) Neutrophils (%) (Auto) 68.5 % Lymphocytes (%) (Auto) 16.5 % Monocytes (%) (Auto) 13.0 % Eosinophils (%) (Auto) 1.6 % Basophils (%) (Auto) 0.2 % Neutrophils # (Auto) 6.93 K/uL (1.4-6.5) Lymphocytes # (Auto) 1.67 K/uL (1.2-3.4) Monocytes # (Auto) 1.31 K/uL (0.11-0.59) Eosinophils # (Auto) 0.16 K/uL (0-0.5) Basophils # (Auto) 0.02 K/uL (0-0.2) RDW Standard Deviation 52.2 fL (36.4-46.3) RDW Coefficient of Variation 15.7 % (11.5-14.5) Immature Granulocyte % (Auto) 0.2 % Immature Granulocyte # (Auto) 0.02 K/uL (0.00-0.02) Erythrocyte Sedimentation Rate 31 mm/hr (0-14) Prothrombin Time 30.5 SECONDS (9.0-12.0) Prothromb Time International Ratio 2.7 (0.9-1.1) Activated Partial Thromboplast Time 48.1 SECONDS (21.0-31.0) Partial Thromboplastin Ratio 1.9 Anion Gap 13.0 mmol/L (3-11) Est Creatinine Clear Calc Drug Dose 87.8 ml/min Estimated GFR () 104.6 Estimated GFR (Non- 90.2 BUN/Creatinine Ratio 20.6 (10-20) Uric Acid 4.4 mg/dl (2.6-7.2) Calcium Level 9.7 mg/dl (8.5-10.1) Total Bilirubin 1.1 mg/dl (0.2-1) Direct Bilirubin 0.2 mg/dl (0-0.2) Aspartate Amino Transf (AST/SGOT) 36 U/L (15-37) Alanine Aminotransferase (ALT/SGPT) 46 U/L (12-78) Alkaline Phosphatase 85 U/L (45-117) C-Reactive Protein 11.40 mg/dl (0-0.29) Total Protein 7.8 gm/dl (6.4-8.2) Albumin 3.7 gm/dl (3.4-5.0) Lyme Disease IgG Antibody NEG (NEG) Lyme Disease IgM Antibody NEG (NEG) Laboratory results reviewed by me Medications Administered Medications (Trade) Dose Ordered Sig/Harpal Route Start Time Stop Time Status Last Admin Dose Admin Oxycodone HCl (Roxicodone Immediate Rel Tab) 5 mg NOW STAT PO 08/03/16 10:03 08/03/16 10:05 DC 08/03/16 10:19 5 MG Prednisone (PredniSONE TAB) 60 mg NOW STAT PO 08/03/16 11:58 08/03/16 12:00 DC 08/03/16 12:11 60 MG ED Course 0954: The patient was evaluated in room B6. A complete history and physical exam was performed. 1003: Oxycodone HCl 5 mg PO 1158: Prednisone 60 mg PO 1220: The patient is feeling better at this time. 1230: I reevaluated the patient. Discussed results and discharge instructions: He verbalized understanding and agreement. The patient is ready for discharge. Medical Decision Triage Nursing notes reviewed. The patient's presentation and history were concerning for right ankle pain. Etiologies such as gout, arthritis, lyme disease, coagulopathy, soft tissue injury, fracture, dislocation, neurovascular compromise, as well as others were entertained. The patient was examined. He had an essentially isolated right ankle joint tenderness and swelling. Clinically this seemed consistent with gout. He does have a history of Lyme disease as well as being on Coumadin. Bone work was obtained. X-ray imaging ordered. The patient was given oxycodone 5 mg. on reassessment the patient was feeling better. The patient had an unremarkable CBC. Inflammatory markers were elevated consistent with the arthritis on examination. Uric acid was unremarkable. Lyme was negative and LFTs were negative. X-ray imaging and does show some arthritic change but no significant pathology noted. The patient was informed. Clinically I suspect gout. The patient was given prednisone and oxycodone for treatment. I did discuss close outpatient follow-up for monitoring his anticoagulation. He does have an orthopedic follow-up pending this week. If he has any problems he can come back to the Emergency Room or follow up with his primary physician. He was also instructed to monitor his blood sugars closely and watch his diet due to the prednisone. Risks and benefits discussed. I gave my usual and customary discussion regarding this issue. By the evaluation outlined above other emergent etiologies such as those listed in the differential, as well as others, were deemed relatively unlikely. The patient was informed about the findings as listed above. All questions were answered and he was pleased with the treatment. Return instructions were outlined and the patient was discharged in stable condition. The patient was referred to his PCP for follow-up next week for a recheck of the current condition. The chart was completed utilizing [employer] Speech voice recognition software. Grammatical errors, random word insertions, pronoun errors, and incomplete sentences are an occasional consequence of this system due to software limitations, ambient noise, and hardware issues. Any formal questions or concerns about the content, text, or information contained within the body of this dictation should be directly addressed to the physician for clarification. [place] Drug Monitoring Program Search Results: patient reviewed within database Drug Monitoring Findings: Few prescriptions noted from time of surgery. Impression Primary Impression: Arthritis of right ankle Scribe Attestation The scribe's documentation has been prepared under my direction and personally reviewed by me in its entirety. I confirm that the note above accurately reflects all work, treatment, procedures, and medical decision making performed by me. Departure Information Dispostion Home / Self-Care Prescriptions Prednisone (Prednisone) 50 Mg Tab 50 MG PO DAILY for 4 Days, #4 TAB Prov: Lionel Lancaster MD 08/03/16 Oxycodone Ir (Roxicodone Ir) 5 Mg Tab 1-2 TAB PO Q4H Y for Pain, #12 TAB Prov: Lionel Lancaster MD 08/03/16 Referrals Francoise Kang M.D. (PCP) Forms HOME CARE DOCUMENTATION FORM, IMPORTANT VISIT INFORMATION Patient Instructions My [facility] Additional Instructions ORTHOPEDIC INSTRUCTIONS: DO NOT drive, drink alcohol, operate machinery, or perform dangerous activities today. You were given medications in the ER that can affect your ability to safely function or operate a vehicle. Oxycodone (OxyIR) 5mg: Take 1-2 pills every four hours for breakthrough pain. Avoid alcohol, operating machinery or dangerous equipment, working on ladders or roofs, DRIVING, or situations where being under the influence may be dangerous. It is recommended to use an lycc-hoo-iuwuqhu stool softener such as Colace, 100mg twice daily while taking this medication to avoid constipation. Prednisone 50 mg: Once daily until the prescription is finished. Acetaminophen(Tylenol) may be used for fever or pain. Use 1000mg every six hours as needed. Avoid using more than 4000mg in a 24 hour period. Ice compresses for 20 minutes at a time four times daily for 2-3 days. Use the walker as instructed. Rest and elevate your foot. Return to the ER immediately for any numbness, tingling, severe pain, extreme swelling in the extremity or as needed. Follow-up with Dr. Kapoor orthopedics as scheduled this week. Follow-up with your coagulation clinic this week for a recheck as your medications can affect the Coumadin dosing.
[2016-10-15] MEDS ORDERED: BIOF500T PO (06:29)
[2016-10-15] MEDS ORDERED: ASPEC81 PO (06:29)
[2016-10-15] MEDS ORDERED: METF-384 PO (06:29)
[2016-10-15] MEDS ORDERED: EPP3/2 IM (06:29)
[2016-10-15] MEDS ORDERED: LISI-729 PO (06:29)
[2016-10-15] MEDS ORDERED: GLIM1TAB2 PO (12:25)
[2016-10-15] MEDS ORDERED: GLUC1CAP33 PO (12:57)
[2016-10-15] MEDS ORDERED: MULT-506 (14:16)
[2016-10-15] MEDS ORDERED: WARF5TAB90 PO ×2 (16:03)
[2016-10-15] MEDS ORDERED: VTMD1000 PO (16:36)
[2016-10-15] MEDS ORDERED: CMD/25 PO (16:36)
[2016-10-15] MEDS ORDERED: NTRSLP4 (16:36)
[2016-10-15] MEDS ORDERED: ATOR-24 PO (23:20)
[2016-10-15] MEDS ORDERED: ATEN50TA8 PO (23:20)
[2016-10-17] MEDS ORDERED: PRED10TA PO (12:25)
== END 2016-08-03 12:35 | disposition home or self-care (01) ==
LOC: C.EDB 09:40
DX: M19.071 Primary osteoarthritis, right ankle and foot (principal); I48.0 Paroxysmal atrial fibrillation; M77.31 Calcaneal spur, right foot; M21.41 Flat foot [pes planus] (acquired), right foot; E11.9 Type 2 diabetes mellitus without complications; E78.5 Hyperlipidemia, unspecified; I10 Essential (primary) hypertension; F17.200 Nicotine dependence, unspecified, uncomplicated; Z79.01 Long term (current) use of anticoagulants; Z79.82 Long term (current) use of aspirin; Z95.0 Presence of cardiac pacemaker; Z95.2 Presence of prosthetic heart valve; Z96.651 Presence of right artificial knee joint; Z83.3 Family history of diabetes mellitus; Z82.49 Family history of ischemic heart disease and other diseases of the circulatory system

== ENCOUNTER 2019-05-27 06:10 | Observation (INO) ==
--- NOTE | 2019-05-27 09:11 | History & Physical Bridge Note ---
Date of Service May 27, 2019 History & Physical Bridge Note I have examined the patient, reviewed the History & Physical and in the interval since the performance of the History & Physical I have noted the following changes of clinical significance: no changes noted
--- NOTE | 2019-05-27 09:12 | Pre Anesthesia Assessment ---
Date of Service May 27, 2019 Pre Sedation Assessment Vital Signs Temp Pulse Resp BP Pulse Ox 05/27/19 06:55 36.4 C L 80 24 116/83 95 Cardiovascular + regular rate and + regular rhythm Respiratory normal respiratory effort, lungs clear to auscultation Pre-Sedation Airway Assessment Smoking Status: Former smoker Hx Sleep Apnea: No Short, Thick Neck: No Thyromental Distance: > or= 3.5 Finger Breadths Oral Cavity: + Dentures Mallampati Class: I ASA: ASA3 NPO Status Date of Last Intake of Fluids: 05/26/19 Time of Last Intake of Fluids: 21:00 Date of Last Intake of Solid Food: 05/26/19 Time of Last Intake of Solid Foods: 21:00 Procedure Planning Contraindications for Sedation: none Current Medications Reviewed: Yes Notes The planned sedation has been discussed with the patient. Informed Consent was obtained. I have identified the patient, determined the appropriateness of sedation and have assessed the patient immediately prior to the procedure. All medicine(s) and interventions are by my order.
[2019-05-27] MEDS ORDERED: NiCARDipine HCL INJ 2.5 MG/ML 10 ML AMP ONE (09:18)
[2019-05-27] MEDS ORDERED: HEPARIN (PORCINE) 1000 UNIT/ML 10 ML (CATH LAB USE ONLY) ONE ×2 (09:18→10:18)
[2019-05-27] MEDS ORDERED: fentaNYL citrate 100 MCG/2 ML VIAL ONE ×2 (09:19→10:17)
[2019-05-27] MEDS ORDERED: NITROGLYCERIN/D5W 100MCG/ML 20ML SYR ONE (09:19)
[2019-05-27] MEDS ORDERED: MIDAZOLAM HCL 1 MG/ML 2ML VIAL ONE ×2 (09:19→10:18)
--- NOTE | 2019-05-27 10:39 | Cardiac Catheterization ---
Cardiac Cath Procedure: Brief Procedure Date May 27, 2019 Pre-Procedure Diagnosis Pre-Procedure Diagnosis: CHF and Cardiomyopathy AUC Score AUC Score: 7 Post-Procedure Diagnosis Post-Procedure Diagnosis: Severe CAD (Single-vessel) Procedure(s) Performed Procedure(s) Performed: Coronary Angiography and Right Heart Cath Delivery Room Supervisor Cameron Smith MD Cnc Maintenance Mechanic(s) Cheryl Fontenot Estimated Blood Loss Estimated Blood Loss: <20 Medication(s) Medication(s): Fentanyl (12.5 mcg IV), Heparin (2500 units IV), Lidocaine 1% (Local infiltration access site), Nicardipine (250 mcg intra-arterial after arterial sheath insertion) and Versed (1 mg IV) Preliminary Findings Right dominant coronary anatomy Left main: Long and large in caliber with 20% distal taper at its trifurcation Left anterior descending: Type III in distribution giving rise to 2 large diagonal branches in its proximal third. Within the left anterior descending there is moderate calcification in its proximal third with 30 to 40% narrowing. The apical segment has a smooth 40% narrowing. The origin of the first diagonal branch is narrowed by 40% Ramus intermedius: Moderately large vessel with 3 subbranches and moderate diffuse irregularities Left circumflex: Large but nondominant giving rise to a large bifurcating obtuse marginal and along the AV groove a posterior lateral branch. Within the left circumflex there is calcification and moderate 30 to 40% narrowings in its proximal portion. The proximal left circumflex obtuse marginal has a 90% discrete lesion prior to large subbranches Right coronary artery: The vessel was dominant distribution giving rise to a large 2 right ventricular branches second of which supplies a portion of the posterior ascending artery distribution. At the AV groove the vessel gives rise to small posterior descending artery and 2 small posterior ventricular branches. Within the right coronary artery there is serial 40% stenosis in its proximal third and mid third but no high-grade obstruction. LV angiography: Not performed aortic valve not crossed (aortic valve bioprosthesis) Right heart pressures RA 13/14 mean 11, RV 63/2/11, PA 64/26 mean 41, pulmonary capillary wedge pressure mean 25 with a V wave of 31 PA saturation 55% RA saturation 56%, cardiac output by thermal dilution 2.9 L/min Recommendations Recommendations: PCI without planned CABG Specimens Specimens: None Fluids (cc crystalloids) Fluids (cc crystalloids): 32 Anesthesia Start time: 0935, stop time: 1021 Procedural Complication(s) None Disposition Recovery Room\PACU
[2019-05-27] MEDS ORDERED: CLOPIDOGREL BISULFATE 300 MG TAB ONE (11:06)
--- NOTE | 2019-05-27 11:11 | Post Anesthesia Assessment ---
Date of Service May 27, 2019 Post Sedation Assessment Vital Signs Temp Pulse Resp BP Pulse Ox 05/27/19 06:55 97.5 F L 80 24 116/83 95 Recovery Score Activity: Moves 4 extremities Respiration: Deep Breath/Cough Circulation: +/-20% PreAnes Value Consciousness: Fully Awake Oxygen Saturation: O2 needed for >90% Discharge Sedation Level of Care: Fast Track Phase II Post Sedation Plan On clinical assessment, the patient appears to have tolerated the sedation without complications. Patient is recovering as anticipated. Patient will continue to be monitored by nursing and may be discharged when sedation discharge criteria are met per below protocol. Upon Completions of procedure up to 15 minutes continue every 5 minute vital signs and the P.A.R. score; then discharge to a Phase I or Fast Track to Phase I I per the following guidelines: * Discharge Patient to appropriate Phase II area if PAR is 8 or greater or return to pre- procedure baseline. The post - procedure orders will be as directed. * If PAR score is less than 8 or not return to pre-procedure baseline then patient will follow Phase I monitoring till PAR is reached for Phase II. The Phase I may be done in procedure room or may call to secure a Phase I area. * If naloxone or flumazenil are used for reversal, hold in Phase I for continued monitoring from when last reversal dose was given for a minimum of 60 minutes or longer pending the nurse and/or physician discretion of patient condition before discharge to Phase II. Please call the Sedation Physician to re-evaluate and complete post-note for discharge to Phase II area. Do NOT discharge from procedure sedation or Phase 1 until post- sedation evaluation note is complete by procedure /sedation MD Sedation Discharge Instructions to be given to the patient at discharge to home.
[2019-05-27] MEDS ORDERED: ACETAMINOPHEN 325 MG TAB PO PRN (11:19)
[2019-05-27] MEDS ORDERED: ONDANSETRON INJ 2 MG/ML 2 ML VIAL IV PRN (11:19)
--- NOTE | 2019-05-27 11:19 | Cardiac Catheterization ---
ACC Data: Food Preparation Kitchen Aide Cardiac Status Clinical evaluation leading to the procedure CAD Presenation: Unstable angina Anginal Classification: CCS III Heart Failure: No Cardiogenic Shock within 24 Hours: No Cardiac Arrest within 24 Hours: No Imaging Studies Past 6 Months: Yes Stress Studies Past 6 Months: No Diagnostic Physicians Name: Alex Elliott MD Closure Device Percutaneous Entry Location: Radial Closure Device: Radial Band Recommendations: PCI without planned CABG PCI Indication: Unstable Angina Lesion Segment Name: Mid circumflex Culprit Artery: Yes Stenosis Prior to Rx (%): 80 Chronic Total Occlusion: No IVUS: No FFR: No Pre-Procedure CARL Flow: 3 Previously Treated Lesion: No Lesion Complexity: Non-High/Non-C Lesion Length (mm): 22 Thrombus Present: No Bifurcation Lesion: No Guidewire Across Lesion: Stenosis Post-Procedure (%): 0 Post-Procedure CARL Flow: 3 Devices(s) Deployed: Yes Yes Intraprocedure Events Significant Disection: No Perforation: No Cardiac Cath Procedure Full Procedure Date May 27, 2019 Pre-Procedure Diagnosis Pre-Procedure Diagnosis: CHF and Cardiomyopathy AUC Score AUC Score: 7 Post-Procedure Diagnosis Post-Procedure Diagnosis: Severe CAD (Single-vessel) and Successful PCI Procedure(s) Performed Procedure(s) Performed: Drug Eluting Stent Nurse Researcher Alex Elliott MD Chemical Applicator(s) Cheryl Fontenot Estimated Blood Loss Estimated Blood Loss: <20 Medication(s) Medication(s): Clopidogrel, Fentanyl (12.5 mcg IV), Heparin (2500 units IV), Nicardipine (250 mcg intra-arterial after arterial sheath insertion), Nitroglycerin and Versed (1 mg IV) Summary of Findings Indication: Accelerating angina, cardiomyopathy Access: 6 Fr right radial artery Catheters: EBU 3.5 guide Findings: For full details of patient's coronary angiography please cath report dictated by Dr. Smith. Briefly, patient found to have severe single vessel disease involving his mid circumflex. Decision to proceed with PCI. -- PCI -- Antithrombotic therapy: Heparin, clopidogrel Procedure: Left main cannulated with EBU 3.5 guide Tub Washer 50 wire passed across lesion into distal vessel Mid circumflex lesion predilated with 2.0 and 2.5 compliant balloon With the aid of a guide liner dilated lesion stented with 2.5 x 26 mm Lei drug- eluting stent Stent post-dilated with stent balloon IC vasodilators administered for spasm Post procedure CARL 3 flow, stent well expanded with minimal residual stenosis and no apparent cardiac complications. Arterial Closure: TR band Summary: 1. Successful PCI of mid circumflex with single drug-eluting stent (2.5 x 26 mm Lei). Recommendations: To PCU for continued monitoring Loaded with clopidogrel 600 mg in laboratory technology teacher Continue dual-antiplatelet therapy for at least 6 months Continue statin, and ASCVD risk factor modification Consult cardiac Rehab Hemodynamics Rest Ao:: 104/56/75 Final Ao: 100/57/74 LV: -- Recommendations Recommendations: PCI without planned CABG Specimens Specimens: None Radiation Exposure (mGy) 3773 Contrast (mls) 140 Fluids (cc crystalloids) Fluids (cc crystalloids): 86 Drains Drains: None Anesthesia Moderate Procedural Complication(s) None Disposition Recovery Room\PACU I attest to the content of the Intraoperative Record and any orders documented therein. Any exceptions are noted below. [facility] Card Cath Procedure Codes Moderate Sedation Procedure 1: Sedation/Anesthesia: 86023 Mod Sedation by a different physician ;Init15 Min Child Age 5&Up Procedure 2: Sedation/Anesthesia: 32579 Mod Sedation by a different physician;Ea Additional 15 Minutes Stenting Procedure 1: Cardiovascular Stent Procedures: 27588 Perc transcatheter placement of intracoronary stent(s), with ang PG Care Time/CCT Total # of Minutes Spent Total Time Spent with Patient: Total time spent is greater than 50% in coordination of care (as documented) at patient's floor/unit and/or counseling patient:
[2019-05-27] MEDS ORDERED: GLUCAGON FOR INJ 1 MG VIAL SQ PRN (11:24)
[2019-05-27] MEDS ORDERED: DEXTROSE 50% 50 ML SYRINGE IV PRN (11:24)
[2019-05-27] MEDS ORDERED: GLUCOSE 10 TABS/TUBE PO PRN (11:24)
[2019-05-27] MEDS ORDERED: CARBOHYDRATES FOR HYPOGLYCEMIA PO PRN (11:24)
[2019-05-27] MEDS ORDERED: GLUCOSE 40% GEL 15 GM TUBE PO PRN (11:24)
[2019-05-27] MEDS ORDERED: SODIUM CHLORIDE 0.9% 1000ML 1,000 ML IV SCH (11:30)
[2019-05-27] MEDS ORDERED: NITROGLYCERIN SL 0.4 MG/TAB TAB SL PRN (11:35)
[2019-05-27] MEDS: INSULIN ASPART 100 UNITS/ML 3 ML PEN SC SCH ×3 (12:01→20:56)
--- NOTE | 2019-05-27 19:08 | Cardiac Catheterization ---
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 [employer] Service(s) Cheryl Fontenot Estimated Blood Loss Estimated Blood Loss: <20 Medication(s) Medication(s): Clopidogrel, Fentanyl (12.5 mcg IV), Heparin (2500 units IV), Nicardipine (250 mcg intra-arterial after arterial sheath insertion), Nitroglycerin and Versed (1 mg IV) Hemodynamics Rest Ao:: 118/62/84 Final Ao: 109/71/89 LV: Aortic valve bioprosthesis not crossed RA: with a mean of 11 Recommendations Recommendations: PCI without planned CABG Specimens Specimens: None Fluids (cc crystalloids) Fluids (cc crystalloids): 86 Drains Drains: None Anesthesia Moderate Procedural Complication(s) None Disposition Recovery Room\PACU I attest to the content of the Intraoperative Record and any orders documented therein. Any exceptions are noted below. ACC Data: [facility] Cardiac Status Clinical evaluation leading to the procedure New onset congestive heart failure and declining LV systolic function Diagnostic Physicians Name: Cameron Smith MD Closure Device Recommendations: PCI without planned CABG
[2019-05-27 19:45] LABS: INR 1.5 (0.9-1.1); Prothrombin Time 15.4 Seconds (9.0-12.0)
[2019-05-27] MEDS ORDERED: WARFARIN SOD 1.25 MG TAB PO STA (19:52)
[2019-05-28 06:08] LABS: Basophils # (auto) 0.03 K/uL (0-0.2); Basophils % (auto) 0.3 %; Eosinophils # (auto) 0.02 K/uL (0-0.5); Eosinophils % (auto) 0.2 %; Hematocrit (blood only) 35.7 % (42-52); Hemoglobin 12.1 g/dL (14.0-18.0); Immature Granulocytes # (auto) 0.03 K/uL (0.00-0.02); Immature Granulocytes % (auto) 0.3 %; Lymphocytes % (auto) 12.4 %; Mean Corpuscular Hemoglobin 31.6 pg (25-34); Mean Corpuscular Hgb Conc 33.9 g/dL (32-36); Mean Corpuscular Volume 93.2 fL (80-100); Mean Platelet Volume 10.6 fL (7.4-10.4); Monocytes # (auto) 0.98 K/uL (0.11-0.59); Monocytes % (auto) 10.2 %; Neutrophils # (auto) 7.38 K/uL (1.4-6.5); Neutrophils % (auto) 76.6 %; Platelet Count 286 K/uL (130-400); RDW Coefficient of Variation 15.4 % (11.5-14.5); RDW Standard Deviation 52.2 fL (36.4-46.3); Red Blood Count 3.83 M/uL (4.7-6.1); White Blood Count 9.64 K/uL (4.8-10.8)
[2019-05-28 06:18] LABS: INR 1.6 (0.9-1.1); Prothrombin Time 16.1 Seconds (9.0-12.0)
[2019-05-28 06:34] LABS: BUN Creatinine Ratio 30.7 (10-20); Calcium 8.7 mg/dl (8.5-10.1); Creatinine Clr Calc Pharmacy 70.7 ml/min; Est GFR (African American) 100.9; Est GFR (Non-African American) 87.1; Potassium 4.5 mmol/L (3.5-5.1)
[2019-05-28] MEDS: INSULIN ASPART 100 UNITS/ML 3 ML PEN SC SCH ×2 (07:42→12:33)
[2019-05-28] MEDS ORDERED: ATORVASTATIN 40 MG TAB PO SCH (09:00)
[2019-05-28] MEDS ORDERED: MULTIVITAMIN TAB PO SCH (09:00)
[2019-05-28] MEDS ORDERED: METOPROLOL SUCC 25MG EXT REL TAB PO SCH (09:00)
[2019-05-28] MEDS ORDERED: ASPIRIN 81 MG PO SCH (09:00)
[2019-05-28] MEDS ORDERED: allopurinoL 100 MG TAB PO SCH (09:00)
[2019-05-28] MEDS ORDERED: CHOLECALCIFEROL 1,000 UNITS TAB PO SCH (09:00)
[2019-05-28] MEDS ORDERED: ASPIRIN 81 MG ECTAB PO SCH (09:00)
[2019-05-28] MEDS ORDERED: CLOPIDOGREL BISULFATE 75 MG TAB PO SCH (09:00)
--- NOTE | 2019-05-30 01:11 | Discharge Summary ---
DISCHARGE DIAGNOSES: 1. Single-vessel obstructive coronary artery disease with 90% stenosis, left circumflex and obtuse marginal. 2. Successful percutaneous coronary intervention with drug-eluting stent. 3. Mixed etiology cardiomyopathy. 4. Aortic valve disease, status post aortic valve replacement. Discharged to home. CONDITION: Good. PROCEDURAL COMPLICATIONS: None. ALLERGIES: ADHESIVES, BEE VENOM AND CEPHALEXIN. MEDICATIONS ON DISCHARGE: Notable for the addition of clopidogrel 75 mg p.o. daily. Continue allopurinol 200 mg p.o. daily, aspirin 81 mg per day x30 days, atorvastatin 80 mg p.o. daily, vitamin D3 one tablet per day, furosemide 40 mg p.o. daily, glimepiride 1 tablet daily, glucosamine chondroitin 1 per day, metformin 1000 mg b.i.d. to begin 2 days after discharge, metoprolol succinate 12.5 mg per day, warfarin reinstitute prior dosing and potassium chloride 40 mEq b.i.d. SPECIAL INSTRUCTIONS: No driving, lifting or strenuous activity x3 days. Call or go to the Emergency Room if sudden worsening symptoms develop. As noted, resume warfarin evening of returning home. Continue to follow up with anticoagulation clinic. Discontinue aspirin after 30 days. ADMISSION HISTORY OF PRESENT ILLNESS: The patient is a 74-year-old male with underlying history of: 1. Aortic valve disease, bicuspid, status post aortic valve replacement in 11/2003 for mixed valvular stenosis, receiving [employer]-[place] bioprosthesis. 2. Dnwu-pt-nftpuuld prior coronary atherosclerosis by remote cardiac catheterization. 3. History of postoperative atrioventricular block, status post permanent pacemaker insertion in 2003 with last device exchange in 2013, now 100% paced. 4. Type 2 diabetes mellitus. 5. Hyperlipidemia. 6. Past paroxysmal atrial fibrillation, asymptomatic on pacemaker interrogations, on chronic anticoagulation. 7. Past valvular cardiomyopathy with recent decline in left ventricular systolic function, ejection fraction 25% with associated class 2-3 congestive heart failure. The patient was recently seen with worsening edema, shortness of breath and signs and symptoms of heart failure with declining left ventricular systolic function. Multifactorial etiologies suspected. Valve structures appear to be functioning appropriately. The patient is anticipating undergoing upgrade to biventricular pacemaker after the first of the year. The patient is referred for diagnostic coronary angiography to exclude progressive worsening ischemic heart disease. For further details, refer to admission H and P. HOSPITAL COURSE: The patient was admitted through the cath lab nurse and underwent right heart catheterization, which demonstrated [id number] pulmonary hypertension as well as single vessel obstructive coronary disease with 90% circumflex stenosis supplying a large area of distribution. In light of declining left ventricular function and heart failure and obstructive disease, the patient underwent single vessel coronary intervention with drug-eluting stent to the circumflex without complication. The patient was observed overnight and discharged home the following morning. Plans as noted above. Continue clopidogrel minimum of 6 months. Resume anticoagulation with warfarin. Continue aspirin x30 days then discontinue until clopidogrel discontinued. All other medications will be continued with plans for proceeding with biventricular pacemaker upgrade. As noted, the patient notes substantial gastrointestinal procedure, appears to be imaging study which should not be interrupted by current complaints. Follow up has been arranged through cardiology clinic.
[2019-05-31 07:45] LABS: iSTAT Arterial Blood Gas HCO3 8 meg/L (19-24); iSTAT Arterial Blood Gas pCO2 27 mmHg (35-46); iSTAT Arterial Blood Gas pH 7.09 (7.35-7.45); iSTAT Arterial Blood Gas pO2 52 mmHg (80-95); iSTAT Carbon Dioxide 9 mEq/l (24-31)
[2019-05-31 07:45] LABS: iSTAT Arterial Blood Gas HCO3 22 meg/L (19-24); iSTAT Arterial Blood Gas pCO2 32 mmHg (35-46); iSTAT Arterial Blood Gas pH 7.45 (7.35-7.45); iSTAT Arterial Blood Gas pO2 69 mmHg (80-95); iSTAT Carbon Dioxide 23 mEq/l (24-31)
[2019-05-31 07:45] LABS: iSTAT Arterial Blood Gas HCO3 23 meg/L (19-24); iSTAT Arterial Blood Gas pCO2 35 mmHg (35-46); iSTAT Arterial Blood Gas pH 7.43 (7.35-7.45); iSTAT Arterial Blood Gas pO2 < 32 mmHg (80-95); iSTAT Carbon Dioxide 24 mEq/l (24-31)
== END 2019-05-28 14:00 | disposition home or self-care (01) ==
LOC: CC 06:10 → 2S 06:10